=== PATIENT | female | born 1945 | race Caucasian/White ===

== ENCOUNTER 2017-11-14 08:34 | Day surgery (SDC) | payer MEDICARE, OTHER ==
[~2017-11-14 08:34] MED LIST: Lactated Ringers 1,000 ML IV SCH; Lidocaine 1%/Sod Bicarbonate in NS 8.4% 1 ML Syringe IDERM PRN; Sodium Chloride 0.9% 10 ML Syringe FLUSH PRN
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
[2017-11-14] MEDS ORDERED: Lidocaine 1% 4 ML ONE (09:07)
[2017-11-14] MEDS ORDERED: Midazolam 1 MG/ML 2 ML SDV ONE (09:07)
[2017-11-14] MEDS ORDERED: Propofol 200 MG/20 ML SDV ONE ×2 (09:07→10:05)
[2017-11-14] MEDS ORDERED: fentaNYL 100 MCG/2 ML SDV ONE (09:07)
--- NOTE | 2017-11-14 10:54 | PCM48HPAN ---
Post Anesthesia Note - EVALUATION WITHIN 48HRS OF ANESTHETIC Vital Signs in Normal Range: Yes Patient Participated in Evaluation: Yes Respiratory Function Stable: Yes Airway Patent: Yes Cardiovascular Function Stable: Yes Hydration Status Stable: Yes Pain Control Satisfactory: Yes Nausea and Vomiting Control Satisfactory: Yes Mental Status Recovered: Yes Pulse Rate: 72 SaO2: 94 Resp Rate: 16 Temperature: 97.1 F Blood Pressure: 126/79
--- NOTE | 2017-11-14 10:57 | PCM.OPNOTE ---
- General Post-Op/Procedure Note Date of Surgery/Procedure: 11/14/17 Operative Procedure(s): Screening colonoscopy with biopsy Findings: Transverse colon polyps Ascending colon polyps Descending colon polyps Internal hemorrhoids and external skin tags. Pre Op Diagnosis: colon cancer screening Post-Op Diagnosis: same Anesthesia Technique: MAC Primary Surgeon: Yenifer Perdomo Anesthesia Provider: Cyril Ledezma Fluid Replacement, Intraop: 800 Output, Urine Amount: 0 EBL in mLs: 0 Condition: Good
[2017-11-14 11:19] VITALS: BP 112/67
--- NOTE | 2017-11-14 13:14 | PCM.PRNOTE ---
- Free Text/Narrative Note: Operative Report Date of Surgery/Procedure: 11/14/17 Operative Procedure: Colonoscopy to cecum with biopsy Pre Op Diagnosis: colorectal cancer screening Post-Op Diagnosis: Colon with polyps Surgeon: Yenifer Perdomo Anesthesia Technique: MAC Anesthesia Provider: Cyril Ledezma CRNA IV Fluid Replacement, Intraop: 800 cc Output, Urine Amount: , 0 cc EBL : 0 cc Findings: Transverse colon polyps Ascending colon polyps Descending colon polyps Internal hemorrhoids and external skin tags. Specimens: 1. Transverse colon polyps 2. Ascending colon polyps 3. Descending colon polyps Indication: The patient is a 72 year-old lady who presented to the outpatient clinic requesting colorectal cancer screening. The patient has a history of normal screening colonoscopy . We discussed the procedure of a screening colonoscopy including the polypectomy and biopsy. Risks of bleeding and perforation were discussed, the patient understood and wished to proceed. Written and consent was obtained Description of the procedure: The patient was brought to the endoscopy suite and placed in the left lateral decubitus position. Appropriate monitors were applied. The patient was given MAC anesthesia. An anorectal examination was performed, revealing external skin tags. The scope was placed into the rectum and advanced to cecum with , some difficulty requiring abdominal external pressure. The patients cecum was entered, and the ileocecal valve and appendiceal orifice were identified and normal. At this point, the scope was withdrawn, paying careful attention to the mucosa. The patient had suboptimal bowel prep, allowing for visualization of 75 % of the mucosa. A few polyps were noted scattered in the transverse colon, descending and descending colon. These were biopsied with cold biopsy forceps and sent for pathology. In the rectum, the scope was retroflexed and no abnormalities were noted, except for some hemorrhoidal tissue. The scope was placed back in the lumen and the excess air was aspirated. The patient tolerated the procedure well. Complications: none apparent Condition: Good, transported to PACU in stable condition Yenifer Perdomo MD General Surgery
== END 2017-11-14 11:19 | disposition home or self-care (01) ==
LOC: JD.SDS 08:34
PROVIDERS: ATTEND Surgery
DX: Z12.11 Encounter for screening for malignant neoplasm of colon (principal); D12.0 Benign neoplasm of cecum; D12.1 Benign neoplasm of appendix; K63.5 Polyp of colon; K64.8 Other hemorrhoids; K64.4 Residual hemorrhoidal skin tags; I34.0 Nonrheumatic mitral (valve) insufficiency; I35.1 Nonrheumatic aortic (valve) insufficiency; I95.1 Orthostatic hypotension; F32.9 Major depressive disorder, single episode, unspecified; E66.9 Obesity, unspecified; Z68.38 Body mass index [BMI] 38.0-38.9, adult; Z79.02 Long term (current) use of antithrombotics/antiplatelets; Z79.82 Long term (current) use of aspirin; Z79.899 Other long term (current) drug therapy; Z88.2 Allergy status to sulfonamides; Z87.891 Personal history of nicotine dependence; Z98.890 Other specified postprocedural states
CPT/HCPCS: 45380; J2250; J2704; J3010; J7120; 00811; 88305; J2001

== ENCOUNTER 2018-12-01 14:20 | Observation (INO) | payer MEDICARE, OTHER ==
[~2018-12-01 14:20] MED LIST changes: -Lactated Ringers 1,000 ML IV SCH; -Lidocaine 1%/Sod Bicarbonate in NS 8.4% 1 ML Syringe IDERM PRN; -Sodium Chloride 0.9% 10 ML Syringe FLUSH PRN; +Sodium Chloride 0.9% 500 ML IV ONE
[2018-12-01] MEDS: Sodium Chloride 0.9% 10 ML Syringe FLUSH PRN ×2 (14:30→17:40)
--- NOTE | 2018-12-01 14:59 | CT ---
Head CT Technique: Multiple axial sections through the brain were obtained. Intravenous contrast was not utilized. Comparison: Prior head CT study of 04/18/16. Findings: Ventricles along with basal cisterns and sulci over the convexities are mildly prominent. No abnormal parenchymal densities are seen. No evidence of intracranial hemorrhage. No midline shift or mass effect is seen. Bone window settings were reviewed which show minimal soft tissue density within the inferior left mastoid sinus which is a stable finding from prior exam. Visualized paranasal sinuses are clear. No acute calvarial abnormality is seen. Slight atherosclerotic calcification seen within the vertebral vessels and carotid siphon. Impression: 1. Minimal senescent change. Stable mucosal thickening within the inferior left mastoid sinus. 2. Nothing acute is seen on noncontrast head CT exam. Diagnostic code #2
[2018-12-01] MEDS ORDERED: LORazepam 2 MG/ML SDV IVPUSH ONE (15:34)
--- NOTE | 2018-12-01 16:51 | MR ---
MRI brain Technique: T1 sagittal; T2, T2 FLAIR, T1 and diffusion axial; T1 and T2 gradient echo coronal; T2 gradient echo axial images were also obtained through the brain. Comparison: Prior head CT study performed earlier the same day (2:33 PM). Findings: Ventricles along with basal cistern and sulci over the convexities are mildly prominent. Right vertebral artery not visualized with certainty and difficult to exclude right vertebral occlusion based on this exam. MR angiogram would be needed to confirm or rule out this finding. No acute diffusion abnormalities are seen. No abnormal signal is seen within the brain parenchyma. No midline shift or mass effect is seen. Impression: 1. Slight atrophy. 2. No signal void is seen within the right vertebral artery and difficult to exclude right vertebral occlusion. MR angiogram would be needed to confirm or rule out this possibility. 3. No abnormal diffusion abnormality is seen within the brain parenchyma. No etiology is seen for the patient's symptoms. Diagnostic code #5
[2018-12-01] MEDS ORDERED: Iopamidol 755 Mg/ML 100 ML Bottle IVPUSH ONE (17:05)
[2018-12-01] MEDS ORDERED: Sodium Chloride 0.9% 100 ML IV SCH (17:15)
[2018-12-01] MEDS ORDERED: Sodium Chloride 0.9% 500 ML IV ONE (17:47)
--- NOTE | 2018-12-01 18:17 | CT ---
CT angiogram of brain Technique: Multiple axial sections through the brain were obtained. Intravenous contrast was utilized. Study performed as a CT angiogram of brain. Findings: Carotid siphon appears unremarkable. Basilar artery and posterior cerebral arteries show no focal stenosis or occlusion. Middle cerebral arteries show no focal stenosis or occlusion. No discrete aneurysm is appreciated. Impression: 1. No abnormality is appreciated on CT study of the brain performed with intravenous contrast. Diagnostic code #1
--- NOTE | 2018-12-01 18:24 | CT ---
CT angiogram of neck Technique: Multiple axial sections through the neck were obtained. Intravenous contrast was utilized. Findings: Left vertebral artery is dominant. Small very diminutive right vertebral artery is noted. There is lack of opacification within the distal right vertebral artery, uncertain if this is due to stenosis but could be due to due to lack of contrast filling due to its small size. Left vertebral artery shows no stenosis or occlusion. No dissection is seen. Common carotid arteries show no stenosis. Atherosclerotic irregularity is seen within the carotid bulb on both sides but no focal stenosis is seen. Internal carotid artery showed no stenosis or dissection. Impression: 1. Atherosclerotic irregularity within the carotid bulb. No stenosis or occlusion is seen within the common carotid or internal carotid arteries. 2. Very diminutive size of the entire right vertebral artery. 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 There is lack of visualization of the distal right vertebral artery which may represent occlusion or simply represent lack of contrast filling due to its small size. Diagnostic code #3
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
[2018-12-01] MEDS ORDERED: Docusate Sodium 100 MG Cap PO PRN (20:34)
[2018-12-01] MEDS ORDERED: Bisacodyl 5 MG Tab PO PRN (20:34)
[2018-12-01] MEDS ORDERED: Acetaminophen/HYDROcodone 325-5 MG Tab PO PRN (20:34)
[2018-12-01] MEDS ORDERED: Albuterol/Ipratropium 3.0-0.5 MG/3 ML Neb Soln NEB PRN (20:34)
[2018-12-01] MEDS ORDERED: HYDROmorphone 0.5 MG/0.5 ML Syringe IVPUSH PRN (20:34)
[2018-12-01] MEDS ORDERED: Ondansetron 4 MG/2 ML SDV IV PRN (20:34)
[2018-12-01] MEDS ORDERED: LORazepam 2 MG/ML SDV IV PRN (20:34)
[2018-12-01] MEDS ORDERED: Promethazine 6.25 MG in Sodium Chloride 0.9% 50 ML IV PRN (20:34)
[2018-12-01] MEDS ORDERED: Temazepam 7.5 MG Cap PO PRN (20:34)
[2018-12-01] MEDS: Albuterol 6.7 GM Inhaler INH PRN (21:45)
[2018-12-01] MEDS ORDERED: Albuterol 6.7 GM Inhaler INH SCH (21:59)
[2018-12-01] MEDS ORDERED: Glycopyrrolate 15.6 MCG Cap.W.Dev Kit of 6 IH SCH (22:00)
[2018-12-01] MEDS ORDERED: Midodrine 5 MG Tab PO SCH (22:00)
[2018-12-01] MEDS ORDERED: Midodrine 5 MG Tab PO PRN (22:00)
[2018-12-01] MEDS: Dorzolamide 2% Ophth Soln 10 ML Bottle EYEBOTH SCH (22:15)
[2018-12-01] MEDS: Fluticasone Propionate Nasal Spray 16 GM Bottle NAS SCH (22:16)
[2018-12-01] MEDS: Acetaminophen 325 MG Tab PO PRN (22:44)
[2018-12-01] MEDS ORDERED: Montelukast 10 MG Tab PO ONE (22:45)
[2018-12-02] MEDS ORDERED: Bacitracin/Neomycin/Polymyxin B Oint 15 GM Tube TOP PRN (04:55)
[2018-12-02] MEDS ORDERED: Albuterol 0.5% 2.5 MG/0.5 ML Neb Soln NEB SCH (06:00)
[2018-12-02] MEDS: Glycopyrrolate 15.6 MCG Cap.W.Dev Kit of 6 IH SCH ×2 (06:04→20:40)
[2018-12-02] MEDS: Albuterol 6.7 GM Inhaler INH PRN (06:05)
--- NOTE | 2018-12-02 06:27 | CR ---
Chest: Portable view of the chest was obtained. Comparison: Prior chest CT study of 10/02/17. Small metallic foreign body projected over the left chest. Lungs show no acute parenchymal change. Heart size is within normal limits for portable technique. Mild tortuosity of the thoracic aorta is seen. No discrete bony abnormality is appreciated. Impression: 1. Small metallic foreign body projected within the left chest. 2. Nothing acute seen on frontal chest x-ray. Diagnostic code #2
--- NOTE | 2018-12-02 06:42 | PCM.PN ---
- General Info Date of Service: 12/02/18 Admission Dx/Problem (Free Text): Admission Diagnosis/Problem Admission Diagnosis/Problem TIA, Transient ischemic attack Subjective Update: Follow Up Functional Status: Reports: Pain Controlled, Tolerating Diet, Ambulating, Urinating - Review of Systems General: Denies: Fever, Weakness, Fatigue, Malaise, Chills HEENT: Reports: No Symptoms Pulmonary: Denies: Shortness of Breath Cardiovascular: Denies: Chest Pain, Dyspnea on Exertion, Lightheadedness Gastrointestinal: Denies: Abdominal Pain, Decreased Appetite, Nausea, Vomiting Genitourinary: Reports: No Symptoms Musculoskeletal: Reports: No Symptoms Skin: Reports: No Symptoms Neurological: Reports: Pre-Existing Deficit, Weakness, Gait Disturbance. Denies : Confusion, Numbness, Paresthesia, Syncope, Tingling, Tremors, Trouble Speaking , Difficulty Walking, Change in Speech Psychiatric: Denies: Depression, Mood Lability, Agitation, Cravings, Hallucinations, Suicidal Ideation, Homicidal Ideation Systems Review Comment:: No overnight or acute issues. She states she is back to her baseline and no new neurological complaints. - Patient Data Vitals - Most Recent: Last Vital Signs Temp 37.1 C 12/02/18 04:43 Pulse 74 12/02/18 04:43 Resp 18 12/02/18 04:43 BP 115/70 12/02/18 04:43 Pulse Ox 96 12/02/18 04:43 Weight - Most Recent: 112.945 kg I&O - Last 24 Hours: Intake & Output 12/01/18 12/01/18 12/02/18 14:59 22:59 06:59 Intake Total 600 Output Total 300 Balance 300 Lab Results Last 24 Hours: Laboratory Results - last 24 hr 12/01/18 12/01/18 12/01/18 Range/Units 14:32 14:33 14:33 WBC 12.43 H (3.98-10.04) K/mm3 RBC 4.29 (3.98-5.22) M/mm3 Hgb 14.2 (11.2-15.7) gm/L Hct 42.3 (34.1-44.9) % MCV 98.6 H (79.4-94.8) fl MCH 33.1 H (25.6-32.2) pg MCHC 33.6 (32.2-35.5) g/dl RDW Std Deviation 47.9 H (36.4-46.3) fL Plt Count 289 (182-369) K/mm3 MPV 10.6 (9.4-12.3) fl Neut % (Auto) 70.7 (34.0-71.1) % Lymph % (Auto) 16.5 L (19.3-51.7) % [place]utter % (Auto) 11.5 (4.7-12.5) % Eos % (Auto) 0.6 L (0.7-5.8) Baso % (Auto) 0.2 (0.1-1.2) % Neut # (Auto) 8.78 H (1.56-6.13) K/mm3 Lymph # (Auto) 2.05 (1.18-3.74) K/mm3 Sutter # (Auto) 1.43 H (0.24-0.36) K/mm3 Eos # (Auto) 0.08 (0.04-0.36) K/mm3 Baso # (Auto) 0.03 (0.01-0.08) K/mm3 Manual Slide Review Normal smear PT 9.8 (9.7-12.0) SECONDS INR < 0.93 APTT 25 (22-31) SECONDS Sodium (136-145) mEq/L Potassium (3.5-5.1) mEq/L Chloride (98-107) mEq/L Carbon Dioxide (21-32) mEq/L Anion Gap (5-15) BUN (7-18) mg/dL Creatinine (0.55-1.02) mg/dL Est Cr Clr Drug Dosing mL/min Estimated GFR (MDRD) (>60) mL/min BUN/Creatinine Ratio (14-18) Glucose (83-115) mg/dL POC Glucose 81 L (83-110) mg/dL Calcium (8.5-10.1) mg/dL Magnesium (1.8-2.4) mg/dl Total Bilirubin (0.2-1.0) mg/dL AST (15-37) U/L ALT (14-59) U/L Alkaline Phosphatase (46-116) U/L Troponin I (0.00-0.056) ng/mL Total Protein (6.4-8.2) g/dl Albumin (3.4-5.0) g/dl Globulin gm/dL Albumin/Globulin Ratio (1-2) Triglycerides (<150) mg/dL Cholesterol (<200) mg/dL LDL Cholesterol Direct (<100) mg/dL HDL Cholesterol (40-59) mg/dL 12/01/18 12/02/18 12/02/18 Range/Units 14:33 04:18 04:18 WBC 10.06 H (3.98-10.04) K/mm3 RBC 3.86 L (3.98-5.22) M/mm3 Hgb 12.5 D (11.2-15.7) gm/L Hct 38.1 (34.1-44.9) % MCV 98.7 H (79.4-94.8) fl MCH 32.4 H (25.6-32.2) pg MCHC 32.8 (32.2-35.5) g/dl RDW Std Deviation 47.4 H (36.4-46.3) fL Plt Count 251 (182-369) K/mm3 MPV 11.0 (9.4-12.3) fl Neut % (Auto) 67.9 (34.0-71.1) % Lymph % (Auto) 21.6 (19.3-51.7) % Sutter % (Auto) 9.0 (4.7-12.5) % Eos % (Auto) 0.8 (0.7-5.8) Baso % (Auto) 0.2 (0.1-1.2) % Neut # (Auto) 6.83 H (1.56-6.13) K/mm3 Lymph # (Auto) 2.17 (1.18-3.74) K/mm3 Sutter # (Auto) 0.91 H (0.24-0.36) K/mm3 Eos # (Auto) 0.08 (0.04-0.36) K/mm3 Baso # (Auto) 0.02 (0.01-0.08) K/mm3 Manual Slide Review PT (9.7-12.0) SECONDS INR APTT (22-31) SECONDS Sodium 137 137 (136-145) mEq/L Potassium 4.9 4.3 (3.5-5.1) mEq/L Chloride 102 105 (98-107) mEq/L Carbon Dioxide 26 23 (21-32) mEq/L Anion Gap 13.9 13.3 (5-15) BUN 23 H 19 H (7-18) mg/dL Creatinine 1.0 0.8 (0.55-1.02) mg/dL Est Cr Clr Drug Dosing 45.08 56.36 mL/min Estimated GFR (MDRD) 54 > 60 (>60) mL/min BUN/Creatinine Ratio 23.0 H 23.8 H (14-18) Glucose 87 106 (83-115) mg/dL POC Glucose (83-110) mg/dL Calcium 9.2 8.3 L (8.5-10.1) mg/dL Magnesium 2.3 (1.8-2.4) mg/dl Total Bilirubin 0.4 (0.2-1.0) mg/dL AST 17 (15-37) U/L ALT 32 (14-59) U/L Alkaline Phosphatase 75 (46-116) U/L Troponin I < 0.017 (0.00-0.056) ng/mL Total Protein 7.5 (6.4-8.2) g/dl Albumin 3.3 L (3.4-5.0) g/dl Globulin 4.2 gm/dL Albumin/Globulin Ratio 0.8 L (1-2) Triglycerides 52 (<150) mg/dL Cholesterol 176 (<200) mg/dL LDL Cholesterol Direct 105 H* (<100) mg/dL HDL Cholesterol 61.0 H (40-59) mg/dL Med Orders - Current: Current Medications Acetaminophen (Tylenol) 650 mg PO Q4H PRN PRN Reason: Pain (Mild 1-3)/fever Last Admin: 12/01/18 22:44 Dose: 650 mg Hydrocodone Bitart/Acetaminophen ([place] 325-5 Mg) 1 tab PO Q4H PRN PRN Reason: Pain (moderate 4-6) Albuterol (Proventil Hfa) 1 - 2 gm INH Q4H PRN PRN Reason: shortness of breath Last Admin: 12/02/18 06:05 Dose: 2 puff Albuterol (Proventil) 2.5 mg NEB BIDRT DUY Albuterol/Ipratropium (Duoneb 3.0-0.5 Mg/3 Ml) 3 ml NEB Q4H PRN PRN Reason: Shortness Of Breath/wheezing Aspirin (Halfprin) 81 mg PO DAILY [facility] Bisacodyl (Dulcolax) 5 mg PO DAILY PRN PRN Reason: Constipation Calcium Carbonate (Calcium Carbonate/Vitamin D 600 Mg-200 Unit) 1 tab PO BID [facility] Clopidogrel Bisulfate (Plavix) 75 mg PO DAILY [facility] Docusate Sodium (Colace) 100 mg PO BID PRN PRN Reason: Constipation Dorzolamide HCl (Trusopt 2% Ophth Soln) 0 ml EYEBOTH BID [facility] Last Admin: 12/01/18 22:15 Dose: 1 drop Enoxaparin Sodium (Lovenox) 40 mg SUBCUT DAILY [facility] Fluoxetine HCl (Prozac) 60 mg PO DAILY [facility] Fluticasone Propionate (Flonase) 0 gm ELVIRA BEDTIME [facility] Last Admin: 12/01/18 22:16 Dose: 2 spray Glycopyrrolate (Seebri Neohaler) 0 mcg IH BIDRT [facility] Last Admin: 12/02/18 06:04 Dose: 2 cap Hydromorphone HCl (Dilaudid) 0.25 mg IVPUSH Q2H PRN PRN Reason: Pain (severe 7-10) Promethazine HCl 6.25 mg/ (Sodium Chloride) 50.25 mls @ 100 mls/hr IV Q6H PRN PRN Reason: Nausea/Vomiting Lorazepam (Ativan) 0.5 mg IV Q6H PRN PRN Reason: Anxiety Midodrine (Midodrine) 5 mg PO QID PRN PRN Reason: Hypotension Montelukast Sodium (Singulair) 10 mg PO BEDTIME [facility] Multivitamins (Thera) 1 each PO DAILY [facility] Neomycin/Polymyxin/Bacitracin (Neosporin Oint) 1 gm TOP TID PRN PRN Reason: Dryness Non-Formulary Medication (Folic Acid [Folic Acid]) 0.8 mg PO DAILY [facility] Non-Formulary Medication (Timolol [Betimol]) 1 drop EYEBOTH DAILY [facility] Ondansetron HCl (Zofran) 4 mg IV Q6H PRN PRN Reason: Nausea/Vomiting Senna/Docusate Sodium (Senna Plus) 1 tab PO BID PRN PRN Reason: Constipation Simvastatin (Zocor) 20 mg PO DAILY [facility] Sodium Chloride (Saline Flush) 10 ml FLUSH ASDIRECTED PRN PRN Reason: Keep Vein Open Last Admin: 12/01/18 17:40 Dose: 10 ml Temazepam (Restoril) 7.5 mg PO BEDTIME PRN PRN Reason: Sleep Vitamin B Complex/Vitamin C (Super B With Vitamin C) 1 cap PO DAILY [facility] Discontinued Medications Albuterol (Proventil Hfa) 0 gm INH BIDRT [facility] Last Admin: 12/01/18 22:18 Dose: Not Given Glycopyrrolate (Seebri Neohaler) 0 mcg IH BID [facility]Y Last Admin: 12/01/18 21:45 Dose: 1 cap Sodium Chloride (Normal Saline) 100 mls @ 80 mls/hr IV ASDIRECTED DUY Last Admin: 12/01/18 17:40 Dose: 80 mls/hr Sodium Chloride (Normal Saline) 500 mls @ 1,000 mls/hr IV .BOLUS ONE Stop: 12/01/18 18:16 Last Admin: 12/01/18 18:17 Dose: 1,000 mls/hr Sodium Chloride (Normal Saline) 500 mls @ 999 mls/hr IV BOLUS ONE Stop: 12/01/18 07:30 Last Admin: 12/01/18 22:02 Dose: Not Given Iopamidol (Isovue-370 (76%)) 100 ml IVPUSH ONETIME ONE Stop: 12/01/18 17:06 Last Admin: 12/01/18 17:40 Dose: 100 ml Lorazepam (Ativan) 0.5 mg IVPUSH ONETIME ONE Stop: 12/01/18 15:35 Last Admin: 12/01/18 15:48 Dose: 0.5 mg Midodrine (Midodrine) 5 mg PO QID [facility] Montelukast Sodium (Singulair) 10 mg PO ONETIME ONE Stop: 12/01/18 22:46 Last Admin: 12/01/18 22:44 Dose: 10 mg - Exam General: Alert, Oriented, Cooperative, No Acute Distress, Other (Morbidly Obese) HEENT: Pupils Equal, Pupils Reactive, EOMI, Mucous Membr. Moist/[place] Neck: Supple Lungs: Clear to Auscultation, Normal Respiratory Effort Cardiovascular: Regular Rate, Regular Rhythm GI/Abdominal Exam: Normal Bowel Sounds, Soft, Non-Tender, No Organomegaly, No Distention, No Abnormal Bruit (Female) Exam: Deferred Back Exam: Normal Inspection, Decreased Range of Motion Extremities: Normal Inspection, Normal Range of Motion, Non-Tender, No Pedal Edema, Normal Capillary Refill Peripheral Pulses: 2+: Dorsalis Pedis (L), Dorsalis Pedis (R) Skin: Warm, Dry, Intact Wound/Incisions: Healing Well Neurological: No New Focal Deficit. No: Normal Gait Psy/Mental Status: Alert, Normal Affect, Normal Mood - Problem List Review Problem List Initiated/Reviewed/Updated: Yes - My Orders Last 24 Hours: My Active Orders 12/01/18 20:29 Albuterol [Proventil HFA] 1 - 2 gm INH Q4H PRN 12/01/18 20:34 Height and Weight [RC] 04 Up With Assistance [RC] ASDIRECTED Consult to Case Management/Dinkey Engine Firer [CONS] Routine Consult to Ge[employer] Field Assistant [CONS] Routine Consult to Spiritual Care [CONS] Routine OT Evaluation and Treatment [CONS] Routine PT Evaluation and Treatment [CONS] Routine BIBLICAL STUDIES PROFESSOR Evaluation and Treatment [CONS] Routine Acetaminophen [Tylenol] 650 mg PO Q4H PRN Acetaminophen/HYDROcodone [[place] 325-5 MG] 1 tab PO Q4H PRN Albuterol/Ipratropium [DuoNeb 3.0-0.5 MG/3 ML] 3 ml NEB Q4H PRN Bisacodyl [Dulcolax] 5 mg PO DAILY PRN Docusate Sodium [Colace] 100 mg PO BID PRN Docusate Sodium/Sennosides [Senna Plus] 1 tab PO BID PRN HYDROmorphone [Dilaudid] 0.25 mg IVPUSH Q2H PRN LORazepam [Ativan] 0.5 mg IV Q6H PRN Ondansetron [Zofran] 4 mg IV Q6H PRN Promethazine [Phenergan] 6.25 mg Sodium Chloride 0.9% [Normal Saline] 50 ml IV Q6H Temazepam [Restoril] 7.5 mg PO BEDTIME PRN Resuscitation Status Routine 12/01/18 20:35 Intake and Output [RC] 04,16 Oxygen Therapy [RC] PRN VTE/DVT Education [RC] DAILY Vital Signs [RC] 03,09,15,21 12/01/18 20:36 RT Aerosol Therapy [RC] ASDIRECTED 12/01/18 20:53 Echo Comp wo Cont [US] Routine 12/01/18 20:54 Brain w Cont [MR] Routine 12/01/18 21:00 Dorzolamide [Trusopt 2% Ophth Soln] 0 ml EYEBOTH BID 12/01/18 21:04 Neuro Check [RC] BID 12/01/18 22:00 Fluticasone Propionate [Flonase] 0 gm ELVIRA BEDTIME Midodrine 5 mg PO QID PRN 12/01/18 Dinner Heart Healthy Diet [DIET] 12/02/18 04:55 Bacitracin/Neomycin/Polymyxin [Neosporin Oint] 1 gm TOP TID PRN 12/02/18 06:00 Albuterol [Proventil] 2.5 mg NEB BIDRT Glycopyrrolate [Seebri Neohaler] See Dose Instructions IH BIDRT 12/02/18 09:00 Aspirin [Halfprin] 81 mg PO DAILY Calcium Carbonate/Vitamin D3 [Calcium Carbonate/Vitamin D 600 MG-200 Unit] 1 tab PO BID Clopidogrel [Plavix] 75 mg PO DAILY Enoxaparin [Lovenox] 40 mg SUBCUT DAILY FLUoxetine [PROzac] 60 mg PO DAILY Folic Acid [Folic Acid] 0.8 mg PO DAILY Multivitamins,Therapeutic [Thera] 1 each PO DAILY Simvastatin [Zocor] 20 mg PO DAILY Timolol [Betimol] 1 drop EYEBOTH DAILY Vitamin B Complex with C [Super B With Vitamin C] 1 cap PO DAILY 12/02/18 21:00 Montelukast [Singulair] 10 mg PO BEDTIME 12/03/18 05:11 BASIC METABOLIC PANEL,BMP [CHEM] AM CBC WITH AUTO DIFF [HEME] AM MAGNESIUM [CHEM] AM 12/04/18 05:11 BASIC METABOLIC PANEL,BMP [CHEM] AM CBC WITH AUTO DIFF [HEME] AM MAGNESIUM [CHEM] AM 12/05/18 05:11 BASIC METABOLIC PANEL,BMP [CHEM] AM CBC WITH AUTO DIFF [HEME] AM MAGNESIUM [CHEM] AM 12/06/18 05:11 BASIC METABOLIC PANEL,BMP [CHEM] AM CBC WITH AUTO DIFF [HEME] AM MAGNESIUM [CHEM] AM - Plan Plan:: Assessment: Acute: TIA - Risk Factors: HLD, Obesity and Valvular Insufficiency - Left facial and arm numbness intermittent since Friday - NIH score of 1 (baseline lower leg weakness/paresthesia) this AM; She reports no new neurological complaints - She is on Plavix, ASA and Pravachol for routine home medications - Case discussed with neurologist in [place] by ED Provider; recommendations were to admit and observe her - Head CT scan report read as no abnormality appreciated; Brain MRI report read as slight atrophy. No sign void is seen within the right vertebral artery and difficult to exclude right vertebral occlusion. MRA would be needed to confirm or r/o this possibility. No abnormal diffusion abnormality seen within the brain parenchyma. - Head CTA report read as no abnormality is appreciated; Neck CTA report read as atherosclerosis irregularity within the carotid bulb. No stenosis or occlusion is seen within the CCA or ICA. Very small size of the entire right vertebral artery. 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 Plan: She is clinically stable Routine AM Labs She is already on ASA/Plavix plus Statin RT/PT/OT to assess and treat Fall precautions SW/CM for d/c planning Code status: full Additional orders as above Possible d/c in 1-2 days Updated patient regarding morning labs, tests result and treatment plan
[2018-12-02] MEDS: Multivitamins,Therapeutic Tab PO SCH (08:16)
[2018-12-02] MEDS: Aspirin 81 MG Tab.EC PO SCH (08:17)
[2018-12-02] MEDS: Folic Acid 1 MG Tab PO SCH (08:17)
[2018-12-02] MEDS: Simvastatin 20 MG Tab PO SCH (08:17)
[2018-12-02] MEDS: Clopidogrel 75 MG Tab PO SCH (08:17)
[2018-12-02] MEDS: Vitamin B Complex With Vitamin C Cap PO SCH (08:18)
[2018-12-02] MEDS: FLUoxetine 20 MG Cap PO SCH (08:18)
[2018-12-02] MEDS: Calcium Carbonate/Vitamin D3 600 MG-200 Units Tab PO SCH ×2 (08:18→21:06)
[2018-12-02] MEDS: Dorzolamide 2% Ophth Soln 10 ML Bottle EYEBOTH SCH ×2 (08:19→21:07)
[2018-12-02] MEDS ORDERED: TIMOLOL EYEBOTH SCH (09:00)
[2018-12-02] MEDS: Enoxaparin 40 MG/0.4 ML Syringe SUBCUT SCH (09:00)
--- NOTE | 2018-12-02 09:44 | MR ---
MR angiogram of brain Technique: [id number] MR angiogram study was obtained centered to the [place] of [place]. Multiple MIP images were obtained in multiple projections. Findings: Basilar artery is patent. Carotid siphon appears within normal limits. Middle and anterior cerebral arteries show no focal stenosis or occlusion. Posterior cerebral arteries are patent. There appears to be a small aneurysm off the M1 segment of the left MCA measuring 2.1 mm. Equivocal 2nd aneurysm is seen more distally within the MCA artery within an anterior branch measuring 1.3 mm. No additional aneurysm is appreciated. Impression: 1. 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 2. MR angiogram of brain is otherwise unremarkable. Diagnostic code #5 Stained Glass Glazier Helper called report to Dr. Ly Luna at 09:36 on 12/02/2018
[2018-12-02] MEDS: Acetaminophen 325 MG Tab PO PRN (15:08)
[2018-12-02] MEDS: Albuterol 6.7 GM Inhaler INH SCH (20:38)
[2018-12-02] MEDS ORDERED: Montelukast 10 MG Tab PO SCH (21:00)
[2018-12-02] MEDS: Fluticasone Propionate Nasal Spray 16 GM Bottle NAS SCH (21:06)
--- NOTE | 2018-12-02 21:13 | PCM.DCSUM1 ---
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 She denies any other neurological complaints. She is non diabetic and denies any previous hx/o TIA/CVA in the past. She did not seek medical care and waited until she got a hold of Dr. Plunkett was told to come to ED for evaluation. Her NIH score in ED was 5 and her repeat assessment on the floor she scored 0. Her initial work reveals a CBC remarkable for WBC of 12.43. MCV of 98.6, MCH of 33.1, RDW of 47.9, Lymphocytes of 16.5%, and Eosinophils of 0.6%. Her chemistry is significant for BUN of 23, BS of 87, and Albumin of 3.3. Her Head CT scan report read as no abnormality appreciated; Brain MRI report read as slight atrophy. No sign void is seen within the right vertebral artery and difficult to exclude right vertebral occlusion. MRA would be needed to confirm or r/o this possibility. No abnormal diffusion abnormality seen within the brain parenchyma. Head CTA report read as no abnormality is appreciated; and Neck CTA report read as atherosclerosis irregularity within the carotid bulb. No stenosis or occlusion is seen within the CCA or ICA. Very small size of the entire right vertebral artery. 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 Patient is primarily coming in for further observation of TIA. Diagnosis: Stroke: Yes Modified Kristal Scale: No Symptoms at All Modified [place] Scale Score: 0 - Discharge Data Discharge Date: 12/03/18 Discharge Disposition: Home, Self-Care 01 Condition: Good - Discharge Diagnosis/Problem(s) (1) TIA (transient ischemic attack) SNOMED Code(s): 872810409 ICD Code: G45.9 - TRANSIENT CEREBRAL ISCHEMIC ATTACK, UNSPECIFIED Status: Ruled-out (2) Carotid atherosclerosis SNOMED Code(s): 595786900 ICD Code: I65.29 - OCCLUSION AND STENOSIS OF UNSPECIFIED CAROTID ARTERY Status: Acute Qualifiers: Laterality: bilateral Qualified Code(s): I65.23 - Occlusion and stenosis of bilateral carotid arteries (3) Morbid obesity with BMI of 40.0-44.9, adult SNOMED Code(s): 931141215, 63664724918238 ICD Code: E66.01 - MORBID (SEVERE) OBESITY DUE TO EXCESS CALORIES; Z68.41 - BODY MASS INDEX (BMI) 40.0-44.9, ADULT Status: Chronic (4) Aneurysm SNOMED Code(s): 722382149 ICD Code: I72.9 - ANEURYSM OF UNSPECIFIED SITE Status: Acute - Patient Summary/Data Operative Procedure(s) Performed: None Complications: None Consults: Consultations 12/01/18 20:34 Consult to Case Management/Head Of Loss Prevention [CONS] Routine Consult to Occupational Safety And Health Manager [CONS] Routine Consult to Spiritual Care [CONS] Routine OT Evaluation and Treatment [CONS] Routine PT Evaluation and Treatment [CONS] Routine CAPACITY ANALYST Evaluation and Treatment [CONS] Routine Labs Pending at D/C: None Recommended Follow-up Testing/Procedures: None Planned Operative Procedure(s) after DC: None Hospital Course: Patient was primarily admitted for TIA. She carried no hx/o CVA/Stroke in the past. Her work up revealed no obvious cause of her TIA but resolved when she got to the observation floor. However her Brain MRA revealed an abnormal finding suspicious of 2 small aneurysms within the Left MCA and Bilateral Carotid Atherosclerosis on Neck CTA. Patient received TIA/Stroke treatment to included CAPACITY ANALYST, PT, and OT. She was put on AHA and continued on her home regimen of ASA/Plavix and BB. Her Telemetry showed no significant abnormal rhythm and her 2D echo was normal with good ejection fraction of 60-65% without regional wall motion abnormality. Her hospital course was uncomplicated. Once medically stable, she was then released to Home. She was advised to follow discharge instructions and to follow up with her family doctor after discharge. She was further advised to come back or seek immediate care should her symptoms persist or get worse. The patient expressed understanding and in agreement with the plans as discussed above. All questions and concerns answered. - Patient Instructions Diet: Heart Healthy Diet, Usual Diet as Tolerated, Weight Loss Diet Activity: As Tolerated Driving: Do Not Drive Showering/Bathing: May Shower Notify Provider of: Fever, Increased Pain, Swelling and Redness, Nausea and/or Vomiting Other/Special Instructions: - Please take all new medications as directed. - Resume routine home medications and activity as tolerated as per PT/OT. - Recommend Lifestyl Modifications: Eat Properly, Exercise Regularly and Lose Weight. - Call or follow up with your doctor for any concerns or issues after discharge. - Follow up with your doctor in 1 week. - Come back or seek immediate care should your symptoms persist or get worse - Discharge Plan *PRESCRIPTION DRUG MONITORING PROGRAM REVIEWED*: Not Applicable *COPY OF PRESCRIPTION DRUG MONITORING REPORT IN PATIENT JOSE D: Not Applicable Home Medications: Home Meds FLUoxetine [PROzac] 60 mg PO DAILY 10/03/15 [History] Pravastatin [Pravachol] 40 mg PO DAILY 10/03/15 [History] Clopidogrel [Plavix] 75 mg PO DAILY 04/18/16 [History] Midodrine 5 mg PO QID PRN 04/18/16 [History] Albuterol Sulfate [Proair Hfa] 1 - 2 puff INH Q4H PRN 11/13/17 [History] Aspirin [Halfprin] 81 mg PO DAILY 11/13/17 [History] Ca Carbonate/Vitamin D3/Vit K [Calcium + D Soft Chewable Tab] 1 tab PO BID 11/13 [History] Dorzolamide [Trusopt 2% Ophth Soln] 1 drop EYEBOTH BID 11/13/17 [History] Folic Acid 0.8 mg PO DAILY 11/13/17 [History] Multivitamin [Poly-Vitamin] 1 tab PO DAILY 11/13/17 [History] Timolol [Betimol] 1 drop EYEBOTH DAILY 11/13/17 [History] Vitamin B Complex [B Complex] 1 tab PO DAILY 11/13/17 [History] Albuterol [Proventil HFA] 2 puff INH BID 12/01/18 [History] Fluticasone Propionate [Flonase] 16 gm NASBOTH DAILY 12/01/18 [History] Montelukast Sodium [Singulair] 10 mg PO BEDTIME 12/01/18 [History] Tiotropium [Spiriva HandiHaler] 18 mcg INH DAILY 12/01/18 [History] Oxygen Therapy Mode: Room Air Patient Handouts: Stroke Prevention, Cerebral Aneurysm, Atherosclerosis, Transient Ischemic Attack Referrals: Mali Forte NP [Primary Care Provider] - 12/10/18 1:45 pm - Discharge Summary/Plan Comment DC Time >30 min.: No Discharge Summary/Plan Comment: Discharge to Home - General Info Date of Service: 12/03/18 Admission Dx/Problem (Free Text: Admission Diagnosis/Problem Admission Diagnosis/Problem TIA, Transient ischemic attack Subjective Update: Follow Up Functional Status: Reports: Pain Controlled, Tolerating Diet, Ambulating, Urinating. Denies: New Symptoms - Review of Systems General: Reports: Weakness (chronic: left leg ). Denies: Fever, Fatigue, Malaise, Chills HEENT: Reports: No Symptoms Pulmonary: Denies: Shortness of Breath Cardiovascular: Denies: Chest Pain, Dyspnea on Exertion, Lightheadedness Gastrointestinal: Denies: Abdominal Pain, Nausea, Vomiting Genitourinary: Reports: No Symptoms Musculoskeletal: Reports: No Symptoms Skin: Denies: Cyanosis, Mottled, Pallor, Diaphoresis, Bruising, Other Neurological: Reports: Paresthesia (left lower leg), Pre-Existing Deficit, Weakness, Gait Disturbance. Denies: Confusion, Dizziness, Headache, Numbness, Seizure, Syncope, Tingling, Tremors, Trouble Speaking, Difficulty Walking, Change in Speech Psychiatric: Denies: Confusion, Depression, Mood Lability, Anxiety, Agitation, Hallucinations, Suicidal Ideation, Homicidal Ideation Systems Review Comment: No overnight or acute issues. She is at baseline and no new neurological complaints. - Patient Data Vitals - Most Recent: Last Vital Signs Temp 36.7 C 12/02/18 15:25 Pulse 74 12/02/18 15:25 Resp 16 12/02/18 15:25 BP 103/70 12/02/18 15:25 Pulse Ox 94 L 12/02/18 20:40 Weight - Most Recent: 112.037 kg I&O - Last 24 hours: Intake & Output 12/02/18 12/02/18 12/02/18 06:59 14:59 22:59 Intake Total 181 261 6700 Output Total 300 750 Balance 300 340 690 Lab Results - Last 24 hrs: Laboratory Results - last 24 hr 12/02/18 12/02/18 Range/Units 04:18 04:18 WBC 10.06 H (3.98-10.04) K/mm3 RBC 3.86 L (3.98-5.22) M/mm3 Hgb 12.5 D (11.2-15.7) gm/L Hct 38.1 (34.1-44.9) % MCV 98.7 H (79.4-94.8) fl MCH 32.4 H (25.6-32.2) pg MCHC 32.8 (32.2-35.5) g/dl RDW Std Deviation 47.4 H (36.4-46.3) fL Plt Count 251 (182-369) K/mm3 MPV 11.0 (9.4-12.3) fl Neut % (Auto) 67.9 (34.0-71.1) % Lymph % (Auto) 21.6 (19.3-51.7) % [place] % (Auto) 9.0 (4.7-12.5) % Eos % (Auto) 0.8 (0.7-5.8) Baso % (Auto) 0.2 (0.1-1.2) % Neut # (Auto) 6.83 H (1.56-6.13) K/mm3 Lymph # (Auto) 2.17 (1.18-3.74) K/mm3 [place] # (Auto) 0.91 H (0.24-0.36) K/mm3 Eos # (Auto) 0.08 (0.04-0.36) K/mm3 Baso # (Auto) 0.02 (0.01-0.08) K/mm3 Sodium 137 (136-145) mEq/L Potassium 4.3 (3.5-5.1) mEq/L Chloride 105 (98-107) mEq/L Carbon Dioxide 23 (21-32) mEq/L Anion Gap 13.3 (5-15) BUN 19 H (7-18) mg/dL Creatinine 0.8 (0.55-1.02) mg/dL Est Cr Clr Drug Dosing 56.36 mL/min Estimated GFR (MDRD) > 60 (>60) mL/min BUN/Creatinine Ratio 23.8 H (14-18) Glucose 106 (83-115) mg/dL Calcium 8.3 L (8.5-10.1) mg/dL Magnesium 2.3 (1.8-2.4) mg/dl Triglycerides 52 (<150) mg/dL Cholesterol 176 (<200) mg/dL LDL Cholesterol Direct 105 H* (<100) mg/dL HDL Cholesterol 61.0 H (40-59) mg/dL Med Orders - Current: Current Medications Acetaminophen (Tylenol) 650 mg PO Q4H PRN PRN Reason: Pain (Mild 1-3)/fever Last Admin: 12/02/18 15:08 Dose: 650 mg Hydrocodone Bitart/Acetaminophen ([place] 325-5 Mg) 1 tab PO Q4H PRN PRN Reason: Pain (moderate 4-6) Albuterol (Proventil Hfa) 1 - 2 gm INH Q4H PRN PRN Reason: shortness of breath Last Admin: 12/02/18 06:05 Dose: 2 puff Albuterol (Proventil Hfa) 0 gm INH BIDRT [facility] Last Admin: 12/02/18 20:38 Dose: 2 each Albuterol/Ipratropium (Duoneb 3.0-0.5 Mg/3 Ml) 3 ml NEB Q4H PRN PRN Reason: Shortness Of Breath/wheezing Aspirin (Halfprin) 81 mg PO DAILY [facility] Last Admin: 12/02/18 08:17 Dose: 81 mg Bisacodyl (Dulcolax) 5 mg PO DAILY PRN PRN Reason: Constipation Calcium Carbonate (Calcium Carbonate/Vitamin D 600 Mg-200 Unit) 1 tab PO BID [facility] Last Admin: 12/02/18 21:06 Dose: 1 tab Clopidogrel Bisulfate (Plavix) 75 mg PO DAILY [facility] Last Admin: 12/02/18 08:17 Dose: 75 mg Docusate Sodium (Colace) 100 mg PO BID PRN PRN Reason: Constipation Dorzolamide HCl (Trusopt 2% Ophth Soln) 0 ml EYEBOTH BID [facility] Last Admin: 12/02/18 21:07 Dose: 1 drop Enoxaparin Sodium (Lovenox) 40 mg SUBCUT DAILY [facility] Last Admin: 12/02/18 09:00 Dose: 40 mg Fluoxetine HCl (Prozac) 60 mg PO DAILY [facility] Last Admin: 12/02/18 08:18 Dose: 60 mg Fluticasone Propionate (Flonase) 0 gm ELVIRA BEDTIME [facility] Last Admin: 12/02/18 21:06 Dose: 2 spray Folic Acid (Folic Acid) 1 mg PO DAILY [facility] Last Admin: 12/02/18 08:17 Dose: 1 mg Glycopyrrolate (Seebri Neohaler) 0 mcg IH BIDRT [facility] Last Admin: 12/02/18 20:40 Dose: 1 cap Hydromorphone HCl (Dilaudid) 0.25 mg IVPUSH Q2H PRN PRN Reason: Pain (severe 7-10) Promethazine HCl 6.25 mg/ (Sodium Chloride) 50.25 mls @ 100 mls/hr IV Q6H PRN PRN Reason: Nausea/Vomiting Lorazepam (Ativan) 0.5 mg IV Q6H PRN PRN Reason: Anxiety Last Admin: 12/02/18 08:27 Dose: 0.5 mg Midodrine (Midodrine) 5 mg PO QID PRN PRN Reason: Hypotension Montelukast Sodium (Singulair) 10 mg PO BEDTIME [facility] Last Admin: 12/02/18 21:07 Dose: 10 mg Multivitamins (Thera) 1 each PO DAILY [facility] Last Admin: 12/02/18 08:16 Dose: 1 each Neomycin/Polymyxin/Bacitracin (Neosporin Oint) 1 gm TOP TID PRN PRN Reason: Dryness Non-Formulary Medication (Timolol [Betimol]) 1 drop EYEBOTH DAILY [facility] Ondansetron HCl (Zofran) 4 mg IV Q6H PRN PRN Reason: Nausea/Vomiting Senna/Docusate Sodium (Senna Plus) 1 tab PO BID PRN PRN Reason: Constipation Simvastatin (Zocor) 20 mg PO DAILY [facility] Last Admin: 12/02/18 08:17 Dose: 20 mg Sodium Chloride (Saline Flush) 10 ml FLUSH ASDIRECTED PRN PRN Reason: Keep Vein Open Last Admin: 12/01/18 17:40 Dose: 10 ml Temazepam (Restoril) 7.5 mg PO BEDTIME PRN PRN Reason: Sleep Vitamin B Complex/Vitamin C (Super B With Vitamin C) 1 cap PO DAILY [facility] Last Admin: 12/02/18 08:18 Dose: 1 cap Discontinued Medications Albuterol (Proventil Hfa) 0 gm INH BIDRT [facility] Last Admin: 12/01/18 22:18 Dose: Not Given Albuterol (Proventil) 2.5 mg NEB BIDRT [facility] Last Admin: 12/02/18 07:03 Dose: Not Given Glycopyrrolate (Seebri Neohaler) 0 mcg IH BID [facility] Last Admin: 12/01/18 21:45 Dose: 1 cap Sodium Chloride (Normal Saline) 100 mls @ 80 mls/hr IV ASDIRECTED [facility] Last Admin: 12/01/18 17:40 Dose: 80 mls/hr Sodium Chloride (Normal Saline) 500 mls @ 1,000 mls/hr IV .BOLUS ONE Stop: 12/01/18 18:16 Last Admin: 12/01/18 18:17 Dose: 1,000 mls/hr Sodium Chloride (Normal Saline) 500 mls @ 999 mls/hr IV BOLUS ONE Stop: 12/01/18 07:30 Last Admin: 12/01/18 22:02 Dose: Not Given Iopamidol (Isovue-370 (76%)) 100 ml IVPUSH ONETIME ONE Stop: 12/01/18 17:06 Last Admin: 12/01/18 17:40 Dose: 100 ml Lorazepam (Ativan) 0.5 mg IVPUSH ONETIME ONE Stop: 12/01/18 15:35 Last Admin: 12/01/18 15:48 Dose: 0.5 mg Midodrine (Midodrine) 5 mg PO QID [facility] Montelukast Sodium (Singulair) 10 mg PO ONETIME ONE Stop: 12/01/18 22:46 Last Admin: 12/01/18 22:44 Dose: 10 mg - Exam General: Reports: Alert, Oriented, Cooperative, No Acute Distress, Other ( Morbidly Obese) HEENT: Reports: Pupils Equal, Pupils Reactive, EOMI, Mucous Membr. Moist/[place] Neck: Reports: Supple Lungs: Reports: Normal Respiratory Effort, Decreased Breath Sounds Cardiovascular: Reports: Regular Rate, Regular Rhythm GI/Abdominal Exam: Normal Bowel Sounds, Soft, Non-Tender, No Organomegaly, No Distention, No Abnormal Bruit, No Mass (Female) Exam: Deferred Rectal (Female) Exam: Deferred Back Exam: Reports: Normal Inspection, Decreased Range of Motion Extremities: Normal Inspection, Normal Range of Motion, Non-Tender, No Pedal Edema, Normal Capillary Refill Skin: Reports: Warm, Dry, Intact Neurological: Reports: No New Focal Deficit, Normal Gait Psy/Mental Status: Reports: Alert, Normal Affect, Normal Mood
[2018-12-03] MEDS: Glycopyrrolate 15.6 MCG Cap.W.Dev Kit of 6 IH SCH (06:01)
[2018-12-03] MEDS: Albuterol 6.7 GM Inhaler INH SCH (06:01)
[2018-12-03 08:26] VITALS: BP 109/79
[2018-12-03] MEDS: Vitamin B Complex With Vitamin C Cap PO SCH (08:52)
[2018-12-03] MEDS: Calcium Carbonate/Vitamin D3 600 MG-200 Units Tab PO SCH (08:53)
[2018-12-03] MEDS: Aspirin 81 MG Tab.EC PO SCH (08:53)
[2018-12-03] MEDS: Multivitamins,Therapeutic Tab PO SCH (08:53)
[2018-12-03] MEDS: Simvastatin 20 MG Tab PO SCH (08:54)
[2018-12-03] MEDS: Clopidogrel 75 MG Tab PO SCH (08:54)
[2018-12-03] MEDS: Folic Acid 1 MG Tab PO SCH (08:54)
[2018-12-03] MEDS: FLUoxetine 20 MG Cap PO SCH (08:54)
[2018-12-03] MEDS: Dorzolamide 2% Ophth Soln 10 ML Bottle EYEBOTH SCH (08:55)
[2018-12-03] MEDS: Enoxaparin 40 MG/0.4 ML Syringe SUBCUT SCH (08:56)
== END 2018-12-03 11:54 | disposition home or self-care (01) ==
LOC: JD.ED 14:20 → JD.MS 19:50
PROVIDERS: ADMIT Internal Medicine; ATTEND Internal Medicine
DX: G45.9 Transient cerebral ischemic attack, unspecified (principal); I10 Essential (primary) hypertension; I67.1 Cerebral aneurysm, nonruptured; I35.1 Nonrheumatic aortic (valve) insufficiency; I72.9 Aneurysm of unspecified site; E78.00 Pure hypercholesterolemia, unspecified; E66.01 Morbid (severe) obesity due to excess calories; J45.909 Unspecified asthma, uncomplicated; K21.9 Gastro-esophageal reflux disease without esophagitis; F41.9 Anxiety disorder, unspecified; F32.9 Major depressive disorder, single episode, unspecified; G89.29 Other chronic pain; M54.9 Dorsalgia, unspecified; Z88.2 Allergy status to sulfonamides; Z68.41 Body mass index [BMI] 40.0-44.9, adult; Z79.02 Long term (current) use of antithrombotics/antiplatelets; Z79.82 Long term (current) use of aspirin; Z79.51 Long term (current) use of inhaled steroids; Z79.899 Other long term (current) drug therapy
CPT/HCPCS: 36415; 70450; 70450-26; 70496; 70496-26; 70498; 70498-26; 70544; 70544-26; 70551; 70551-26; 71045; 71045-26; 80048; 80053; 80061; 82962; 83735; 84484; 85025; 85610; 85730; 92610-GN; 93005; 93306; 94640; 94760; 96361; 96374; 97110-GP; 97116-GP; 97161-GP; 97165-GO; 99284-25; A9270-GY; J1650; J2060; J7030; J7040; Q9967

== ENCOUNTER 2019-03-08 10:13 | Inpatient (IN) | payer MEDICARE, OTHER ==
[~2019-03-08 10:13] MED LIST changes: +Acetaminophen 325 MG Tab PO SCH; +Bisacodyl 5 MG Tab PO PRN; +Cyclobenzaprine 10 MG Tab PO PRN; +Lidocaine 1%/Sod Bicarbonate in NS 8.4% 1 ML Syringe IDERM PRN; +Magnesium Hydroxide 400 MG/5 ML Susp 30 ML Cup PO PRN; +Morphine 2 MG/ML Syringe IVPUSH PRN; +Naloxone 0.4 MG/ML SDV IVPUSH PRN; +Ondansetron 4 MG/2 ML SDV IVPUSH PRN; +Pregabalin 25 MG Cap PO SCH; +Ropivacaine 0.5% 5 MG/ML 30 ML SDV ONE; +Sennosides 8.6 MG Tab PO PRN; +Sodium Chloride 0.9% 10 ML Syringe FLUSH PRN; -Sodium Chloride 0.9% 500 ML IV ONE; +ceFAZolin 2 GM in Premix Bag 1 BAG IV SCH; +oxyCODONE ER 10 MG TAB.ER PO SCH
[2019-03-08] MEDS ORDERED: ceFAZolin 1 GM Vial ONE ×2 (10:19→11:34)
[2019-03-08] MEDS ORDERED: Lactated Ringers 1,000 ML ONE (10:19)
[2019-03-08] MEDS ORDERED: Rocuronium 50 MG/5 ML Vial ONE (10:19)
[2019-03-08] MEDS ORDERED: Ondansetron 4 MG/2 ML SDV ONE (10:19)
[2019-03-08] MEDS ORDERED: Propofol 200 MG/20 ML SDV ONE ×2 (10:19→13:16)
[2019-03-08] MEDS ORDERED: fentaNYL 100 MCG/2 ML SDV ONE ×2 (10:20→11:54)
[2019-03-08] MEDS ORDERED: Phenylephrine/Normal Saline 100 MCG/ML 10 ML Syringe ONE (10:27)
[2019-03-08] MEDS: Lactated Ringers 1,000 ML IV SCH ×2 (11:00→15:16)
[2019-03-08] MEDS ORDERED: Ketorolac 15 MG/ML SDV IVPUSH PRN (11:00)
[2019-03-08] MEDS ORDERED: Lidocaine 1% 2 ML ONE (11:09)
[2019-03-08] MEDS ORDERED: Midazolam Oral Soln 10 MG/5 ML Oral Syringe ONE (11:09)
[2019-03-08] MEDS ORDERED: Midazolam 1 MG/ML 2 ML SDV ONE (11:09)
[2019-03-08] MEDS ORDERED: Triamcinolone Acetonide 40 MG/ML 1 ML MDV ONE (11:33)
[2019-03-08] MEDS ORDERED: Bupivacaine 0.25% 10 ML SDV ONE (11:34)
[2019-03-08] MEDS ORDERED: Iodine/Sodium Iodide 2% Tincture 30 ML Bottle ONE (11:34)
[2019-03-08] MEDS ORDERED: Vancomycin 1 GM SDV ONE (11:34)
[2019-03-08] MEDS ORDERED: Albuterol 0.083% 2.5 MG/3 ML Neb Soln ONE (11:36)
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
[2019-03-08] MEDS ORDERED: Albuterol 0.083% 2.5 MG/3 ML Neb Soln NEB ONE (11:45)
[2019-03-08] MEDS ORDERED: Lidocaine 1% 4 ML ONE (11:53)
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
--- NOTE | 2019-03-08 12:30 | PCM.SN ---
- Free Text/Narrative Note: Anesthesia Note: (Interscalene block note) Date: 03/08/2019 Time Out: 1152 Start: 1152 Stop: 1221 Surgical Procedure: Left Reverse Total Shoulder Arthroplasty Diagnosis: Left shoulder pain Current Procedure: Left interscalene block under US guidance for postoperative pain control requested by Dr. Yarbrough. Patient chart reviewed, risk/benefits discussed with patient, consent obtained. Patient positioned supine, monitors/alarms on, oxygen placed via nasal cannula at 2 LPM. IV sedation administered: Versed 1mg IV Fentanyl 50mcg IV Left shoulder prepped with chloraprep x2. Sterile drapes placed with aseptic technique. Under US guidance (sterile US sleeve) left subclavian artery visualized along with the left brachial plexus. Plexus followed cephalad up to C6 cricoid level, and area localized with 2mls of 1% lidocaine. 22gauge 2 inch stimiplex needle inserted under US and guided to brachial plexus C5-C6 trunks with 0.44mV with stimulation of biceps noted. Stimulation abolished at 0.2mVs. with 1ml of Normal Saline injected to confirm needle not placed intraneurally. Incremental injection of 5mls with negative aspiration prior to each injection of 0.5% ropivacaine with 1:200,000 epinephrine. Total volume=30mls. Please refer to nurses notes for vital signs, patient tolerated procedure well. Thank you! Roc Finn CRNA
[2019-03-08] MEDS ORDERED: ePHEDrine/Normal Saline 25 MG/5 ML Syringe ONE ×2 (13:07→14:07)
[2019-03-08] MEDS ORDERED: Neostigmine Methylsulfate 1 MG/ML 5 ML Syringe ONE (13:54)
[2019-03-08] MEDS ORDERED: fentaNYL 100 MCG/2 ML SDV IVPUSH PRN (14:35)
[2019-03-08] MEDS ORDERED: Ondansetron 4 MG/2 ML SDV IVPUSH PRN (14:35)
--- NOTE | 2019-03-08 14:35 | CR ---
Left shoulder: Four fluoroscopic spot views were obtained utilizing C-arm device left shoulder. Comparison: Prior left shoulder MRI study of 02/04/19. Findings: Reverse left shoulder prosthetic placement is noted. Components are aligned. Fluoroscopy time given as 2.9 seconds. Impression: 1. Procedural study as noted above. Diagnostic code #2 This report was dictated in [place] Standard Time
--- NOTE | 2019-03-08 14:35 | PCM.POSTAN ---
POST ANESTHESIA ASSESSMENT - MENTAL STATUS Mental Status: Alert, Oriented - VITAL SIGNS Vital Signs: Last Vital Signs Temp 36.5 C 03/08/19 14:25 Pulse 70 03/08/19 12:19 Resp 14 03/08/19 14:25 BP 175/85 H 03/08/19 14:25 Pulse Ox 93 L 03/08/19 14:25 - RESPIRATORY Respiratory Status: Respiratory Rate WNL, Airway Patent, O2 Saturation Stable, Supplemental Oxygen - CARDIOVASCULAR CV Status: Pulse Rate WNL, Blood Pressure Stable - GASTROINTESTINAL GI Status: No Symptoms - PAIN Pain Score: 0 - POST OP HYDRATION Hydration Status: Adequate & Stable
[2019-03-08] MEDS ORDERED: Midodrine 5 MG Tab PO PRN (15:35)
[2019-03-08] MEDS ORDERED: Non-Formulary Medication 1 Each (Albuterol [Proventil Hfa] 2 PUFF) INH PRN (15:35)
--- NOTE | 2019-03-08 15:43 | CR ---
Left shoulder: Single portable AP view of the left shoulder was obtained. Comparison: Prior operative study performed earlier on same day. Findings: Reverse left shoulder prosthesis is seen. Prosthesis appears aligned. Underlying bony structures are intact. Nothing acute is seen. Impression: 1. Satisfactory appearance of recently placed left shoulder prosthesis. Diagnostic code #2 This report was dictated in [place] Standard Time
[2019-03-08] MEDS: Famotidine 20 MG Tab PO SCH ×2 (15:57→18:07)
[2019-03-08] MEDS ORDERED: Albuterol 0.083% 2.5 MG/3 ML Neb Soln NEB PRN (16:22)
[2019-03-08] MEDS: ceFAZolin 2 GM in Premix Bag 1 BAG IV SCH (18:07)
[2019-03-08] MEDS: Acetaminophen/oxyCODONE 325-5 MG Tab PO PRN ×2 (18:08→23:37)
[2019-03-08] MEDS: Docusate Sodium 100 MG Cap PO SCH (20:18)
[2019-03-08] MEDS ORDERED: TIOTROPIUM INH SCH (21:00)
[2019-03-08] MEDS ORDERED: Pravastatin Sodium 80 MG PO SCH (21:00)
[2019-03-08] MEDS ORDERED: TIMOLOL EYEBOTH SCH (21:00)
[2019-03-08] MEDS ORDERED: Montelukast 10 MG Tab PO SCH (21:00)
[2019-03-09] MEDS: ceFAZolin 2 GM in Premix Bag 1 BAG IV SCH ×2 (01:43→09:33)
[2019-03-09] MEDS: Acetaminophen/oxyCODONE 325-5 MG Tab PO PRN ×3 (05:51→13:51)
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
[2019-03-09] MEDS: Famotidine 20 MG Tab PO SCH (07:50)
[2019-03-09] MEDS: Docusate Sodium 100 MG Cap PO SCH (08:52)
[2019-03-09] MEDS ORDERED: TIOTROPIUM INH SCH (09:00)
[2019-03-09] MEDS ORDERED: Folic Acid 1 MG Tab PO SCH (09:00)
[2019-03-09] MEDS ORDERED: TIMOLOL EYEBOTH SCH (09:00)
[2019-03-09] MEDS ORDERED: Aspirin 325 MG Tab.EC PO SCH ×2 (09:00)
[2019-03-09] MEDS ORDERED: Cholecalciferol (Vitamin D3) 5,000 UNIT Tab PO SCH (09:00)
[2019-03-09] MEDS ORDERED: FLUoxetine 20 MG Cap PO SCH (09:00)
[2019-03-09] MEDS ORDERED: Multivitamins,Therapeutic Tab PO SCH (09:00)
[2019-03-09] MEDS ORDERED: Vitamin B Complex With Vitamin C Cap PO SCH (09:00)
[2019-03-09] MEDS ORDERED: Fluticasone Propionate Nasal Spray 16 GM Bottle NASBOTH SCH (09:00)
[2019-03-09] MEDS ORDERED: Clopidogrel 75 MG Tab PO SCH (09:00)
--- NOTE | 2019-03-09 11:36 | PCM48HPAN ---
Post Anesthesia Note - EVALUATION WITHIN 48HRS OF ANESTHETIC Vital Signs in Normal Range: Yes Patient Participated in Evaluation: Yes Respiratory Function Stable: Yes Airway Patent: Yes Cardiovascular Function Stable: Yes Hydration Status Stable: Yes Pain Control Satisfactory: Yes Nausea and Vomiting Control Satisfactory: Yes Mental Status Recovered: Yes Vital Signs: Last Vital Signs Temp 36.8 C 03/09/19 08:00 Pulse 85 03/09/19 08:00 Resp 20 03/09/19 08:00 BP 131/77 03/09/19 08:00 Pulse Ox 94 L 03/09/19 09:50
--- NOTE | 2019-03-09 12:16 | PCM.SURGPN ---
- General Info Date of Service: 03/09/19 POD#: 1 Functional Status: Reports: Pain Controlled, Tolerating Diet, Ambulating, Urinating, Incentive Spirometry - Patient Data Vitals - Most Recent: Last Vital Signs Temp 98.3 F 03/09/19 08:00 Pulse 85 03/09/19 08:00 Resp 20 03/09/19 08:00 BP 131/77 03/09/19 08:00 Pulse Ox 94 L 03/09/19 09:50 Weight - Most Recent: 250 lb I&O - Last 24 Hours: Intake & Output 03/08/19 03/09/19 03/09/19 22:59 06:59 14:59 Intake Total 2030 900 Output Total 900 Balance 2030 0 Lab Results Last 24 Hrs: Laboratory Results - last 24 hr 03/09/19 03/09/19 Range/Units 05:46 05:46 WBC 9.99 (3.98-10.04) K/mm3 RBC 3.49 L (3.98-5.22) M/mm3 Hgb 11.5 (11.2-15.7) gm/dl Hct 36.4 (34.1-44.9) % MCV 104.3 H D (79.4-94.8) fl MCH 33.0 H (25.6-32.2) pg MCHC 31.6 L (32.2-35.5) g/dl RDW Std Deviation 48.1 H (36.4-46.3) fL Plt Count 250 (182-369) K/mm3 MPV 11.2 (9.4-12.3) fl Sodium 136 (136-145) mEq/L Potassium 4.4 (3.5-5.1) mEq/L Chloride 102 (98-107) mEq/L Carbon Dioxide 26 (21-32) mEq/L Anion Gap 12.4 (5-15) BUN 10 (7-18) mg/dL Creatinine 0.8 (0.55-1.02) mg/dL Est Cr Clr Drug Dosing 56.36 mL/min Estimated GFR (MDRD) > 60 (>60) mL/min BUN/Creatinine Ratio 12.5 L (14-18) Glucose 118 H (83-115) mg/dL Calcium 8.1 L (8.5-10.1) mg/dL Total Bilirubin 0.4 (0.2-1.0) mg/dL AST 13 L (15-37) U/L ALT 17 (14-59) U/L Alkaline Phosphatase 52 (46-116) U/L Total Protein 6.3 L (6.4-8.2) g/dl Albumin 2.7 L (3.4-5.0) g/dl Globulin 3.6 gm/dL Albumin/Globulin Ratio 0.8 L (1-2) Med Orders - Current: Current Medications Albuterol (Proventil Neb Soln) 2.5 mg NEB Q4HRRT PRN PRN Reason: SOB/Wheezing Aspirin (Ecotrin) 325 mg PO DAILY [facility] Last Admin: 03/09/19 08:52 Dose: 325 mg Bisacodyl (Dulcolax) 5 mg PO DAILY PRN PRN Reason: Constipation Cholecalciferol (Vitamin D3) 5,000 unit PO DAILY [facility] Last Admin: 03/09/19 08:52 Dose: 5,000 unit Clopidogrel Bisulfate (Plavix) 75 mg PO DAILY [facility] Last Admin: 03/09/19 08:52 Dose: 75 mg Cyclobenzaprine HCl (Flexeril) 5 mg PO BID PRN PRN Reason: Spasms Last Admin: 03/09/19 08:53 Dose: 5 mg Docusate Sodium (Colace) 100 mg PO BID [facility] Last Admin: 03/09/19 08:52 Dose: 100 mg Famotidine (Pepcid) 20 mg PO Q12H [facility] Last Admin: 03/09/19 07:50 Dose: 20 mg Fluoxetine HCl (Prozac) 60 mg PO DAILY [facility] Last Admin: 03/09/19 08:52 Dose: 60 mg Fluticasone Propionate (Flonase) 0 gm NASBOTH DAILY [facility] Last Admin: 03/09/19 08:56 Dose: 1 spray Folic Acid (Folic Acid) 1 mg PO DAILY [facility] Last Admin: 03/09/19 08:52 Dose: 1 mg Ketorolac Tromethamine (Toradol) 15 mg IVPUSH Q6H PRN PRN Reason: Pain Last Admin: 03/09/19 01:16 Dose: 15 mg Magnesium Hydroxide (Milk Of Magnesia) 30 ml PO BID PRN PRN Reason: Constipation Midodrine (Midodrine) 5 mg PO DAILY PRN PRN Reason: Hypotension Montelukast Sodium (Singulair) 10 mg PO BEDTIME [facility] Last Admin: 03/08/19 20:18 Dose: 10 mg Morphine Sulfate (Morphine) 2 mg IVPUSH Q2H PRN PRN Reason: Breakthrough Pain Multivitamins (Thera) 1 each PO DAILY [facility] Last Admin: 03/09/19 08:52 Dose: 1 each Naloxone HCl (Narcan) 0.1 mg IVPUSH Q5M PRN PRN Reason: Oversedation Ondansetron HCl (Zofran) 4 mg IVPUSH Q6H PRN PRN Reason: Nausea/Vomiting Last Admin: 03/08/19 15:48 Dose: 4 mg Oxycodone/Acetaminophen (Percocet 325-5 Mg) 1 - 2 tab PO Q4H PRN PRN Reason: Pain Last Admin: 03/09/19 08:53 Dose: 2 tab (Budesonide/Formoterol 160/4.5)* Pt Own Med* 0 each INH BID [facility] Last Admin: 03/09/19 09:49 Dose: 2 each (Dorzolamide [ Trusopt 2% Ophth Soln]*Pt Own Med* 0 each EYEBOTH BID [facility] Last Admin: 03/09/19 08:56 Dose: 1 each Pravastatin Sodium (80 Mg) 0 each PO BEDTIME [facility] Last Admin: 03/08/19 20:21 Dose: Not Given Timolol Opthalmic 0. (25% *Pt Own Med*) 0 each EYEBOTH BEDTIME [facility] Last Admin: 03/08/19 21:00 Dose: 1 each Tiotropium Inh *Pt (Own Med*) 0 each INH BEDTIME [facility] Last Admin: 03/08/19 20:40 Dose: 2 each Senna (Senna) 8.6 mg PO BID PRN PRN Reason: Constipation Vitamin B Complex/Vitamin C (Super B With Vitamin C) 1 cap PO DAILY [facility] Last Admin: 03/09/19 08:52 Dose: 1 cap Discontinued Medications Acetaminophen (Tylenol) 975 mg PO ONETIME [facility] Stop: 03/08/19 12:00 Last Admin: 03/08/19 10:47 Dose: 975 mg Albuterol (Proventil Neb Soln) 2.5 mg NEB ONETIME ONE Stop: 03/08/19 11:46 Last Admin: 03/08/19 11:38 Dose: 2.5 mg Albuterol (Proventil Neb Soln) Confirm Administered Dose 2.5 mg .ROUTE .STK-MED ONE Stop: 03/08/19 11:37 Last Admin: 03/08/19 15:57 Dose: Not Given Aspirin (Ecotrin) 325 mg PO BID [facility] Bupivacaine HCl (Sensorcaine-Mpf 0.25%) Confirm Administered Dose 10 ml .ROUTE .STK-MED ONE Stop: 03/08/19 11:35 Last Admin: 03/08/19 14:14 Dose: 4 ml Cefazolin Sodium (Ancef) Confirm Administered Dose 2 gm .ROUTE .STK-MED ONE Stop: 03/08/19 10:20 Last Admin: 03/08/19 13:47 Dose: 2 gm Cefazolin Sodium (Ancef) Confirm Administered Dose 2 gm .ROUTE .STK-MED ONE Stop: 03/08/19 11:35 Ephedrine Sulfate (Ephedrine In Ns) Confirm Administered Dose 25 mg .ROUTE .STK- MED ONE Stop: 03/08/19 13:08 Ephedrine Sulfate (Ephedrine In Ns) Confirm Administered Dose 25 mg .ROUTE .STK- MED ONE Stop: 03/08/19 14:08 Fentanyl (Sublimaze) Confirm Administered Dose 100 mcg .ROUTE .STK-MED ONE Stop: 03/08/19 10:21 Fentanyl (Sublimaze) Confirm Administered Dose 100 mcg .ROUTE .STK-MED ONE Stop: 03/08/19 11:55 Fentanyl (Sublimaze) 50 mcg IVPUSH Q5M PRN PRN Reason: pain Stop: 03/08/19 17:00 Glycopyrrolate () Confirm Administered Dose 1 mg .ROUTE .STK-MED ONE Stop: 03/08/19 13:55 Lactated Ringer's (Ringers, Lactated) 1,000 mls @ 125 mls/hr IV ASDIRECTED [facility] Stop: 03/08/19 23:00 Last Admin: 03/08/19 15:16 Dose: 125 mls/hr Cefazolin Sodium/Dextrose 2 gm (/ Premix) 50 mls @ 100 mls/hr IV Q8H [facility] Stop: 03/08/19 23:29 Last Admin: 03/09/19 02:07 Dose: Not Given Lactated Ringer's (Ringers, Lactated) Confirm Administered Dose 1,000 mls @ as directed .ROUTE .STK-MED ONE Stop: 03/08/19 10:20 Lidocaine HCl (Xylocaine-Mpf 1%) Confirm Administered Dose 2 mls @ as directed .ROUTE .STK-MED ONE Stop: 03/08/19 11:10 Cefazolin Sodium/Dextrose 2 gm (/ Premix) 50 mls @ 100 mls/hr IV Q8H [facility] Stop: 03/09/19 10:59 Last Admin: 03/09/19 09:33 Dose: 100 mls/hr Lidocaine HCl (Xylocaine-Mpf 1%) Confirm Administered Dose 4 mls @ as directed .ROUTE .STK-MED ONE Stop: 03/08/19 11:54 Iodine (Iodine 2% Mild Tincture) Confirm Administered Dose 30 ml .ROUTE .STK- MED ONE Stop: 03/08/19 11:35 Last Admin: 03/08/19 13:46 Dose: 17 ml Lidocaine/Sodium Bicarbonate (Buffered Lidocaine 1% In Ns 8.4%) 0.25 ml IDERM ONETIME PRN PRN Reason: Prior to IV Start Stop: 03/08/19 23:00 Last Admin: 03/08/19 10:59 Dose: 0.25 ml Midazolam HCl (Versed 2 Mg/Ml) Confirm Administered Dose 10 mg .ROUTE .STK-MED ONE Stop: 03/08/19 11:10 Midazolam HCl (Versed 1 Mg/Ml) Confirm Administered Dose 2 mg .ROUTE .STK-MED ONE Stop: 03/08/19 11:10 Neostigmine Methylsulfate (Neostigmine) Confirm Administered Dose 5 mg .ROUTE .STK-MED ONE Stop: 03/08/19 13:55 Non-Formulary Medication (Albuterol [Proventil Hfa]) 2 puff INH QID PRN PRN Reason: Shortness of Breath Ondansetron HCl (Zofran) Confirm Administered Dose 4 mg .ROUTE .STK-MED ONE Stop: 03/08/19 10:20 Ondansetron HCl (Zofran) 4 mg IVPUSH ONETIME PRN PRN Reason: Nausea/Vomiting Stop: 03/08/19 17:00 Oxycodone HCl (Oxycontin) 10 mg PO ONETIME [facility] Stop: 03/08/19 12:00 Last Admin: 03/08/19 10:47 Dose: 10 mg Timolol Opthalmic 0. (25% *Pt Own Med*) 0 each EYEBOTH DAILY [facility] Tiotropium Inh *Pt (Own Med*) 0 each INH DAILY [facility] Phenylephrine HCl (Phenylephrine In Ns 100 Mcg/Ml) Confirm Administered Dose 1 mg .ROUTE .STK-MED ONE Stop: 03/08/19 10:28 Pregabalin (Lyrica) 50 mg PO ONETIME [facility] Stop: 03/08/19 12:00 Last Admin: 03/08/19 10:47 Dose: 50 mg Propofol (Diprivan 20 Ml) Confirm Administered Dose 200 mg .ROUTE .STK-MED ONE Stop: 03/08/19 10:20 Propofol (Diprivan 20 Ml) Confirm Administered Dose 200 mg .ROUTE .STK-MED ONE Stop: 03/08/19 13:17 Rocuronium Rousseau (Zemuron) Confirm Administered Dose 50 mg .ROUTE .STK-MED ONE Stop: 03/08/19 10:20 Ropivacaine (Naropin 0.5%) Confirm Administered Dose 30 ml .ROUTE .STK-MED ONE Stop: 03/08/19 07:28 Sodium Chloride (Saline Flush) 10 ml FLUSH ASDIRECTED PRN PRN Reason: Keep Vein Open Stop: 03/08/19 23:00 Tranexamic Acid (Cyklokapron) Confirm Administered Dose 1,000 mg .ROUTE .STK- MED ONE Stop: 03/08/19 11:34 Last Admin: 03/08/19 13:53 Dose: 1,000 mg Triamcinolone Acetonide (Kenalog-40) Confirm Administered Dose 80 mg .ROUTE .STK -MED ONE Stop: 03/08/19 11:34 Last Admin: 03/08/19 14:14 Dose: 80 mg Vancomycin HCl (Vancomycin) Confirm Administered Dose 1 gm .ROUTE .STK-MED ONE Stop: 03/08/19 11:35 Last Admin: 03/08/19 13:53 Dose: 1 gm - Exam Wound/Incisions: Dressing Dry and Intact General: Alert, Cooperative, No Acute Distress Lungs: Normal Respiratory Effort Extremities: Other (NVS intact for LUE. Active left hand/wrist and elbow motion noted. Willem's negative for BLE also.) Sepsis Event Note - Evaluation Sepsis Screening Result: No Definite Risk - Focused Exam Vital Signs: Vital Signs Temp Pulse Resp BP Pulse Ox Pulse Ox 03/09/19 09:50 94 L 03/09/19 08:00 98.3 F 85 20 131/77 94 L 03/09/19 07:37 94 L 03/09/19 00:35 98.6 F 18 132/72 Date Exam was Performed: 03/09/19 Time Exam was Performed: 12:42 - Problem List Review Problem List Initiated/Reviewed/Updated: Yes - My Orders Last 24 Hours: Active Orders 24 hr Category Date Time Status Patient Status [ADT] Routine ADT 03/08/19 21:05 Active RT Aerosol Therapy [RC] ASDIRECTED Care 03/08/19 11:33 Active Ready for Discharge [RC] PER UNIT ROUTINE Care 03/09/19 08:23 Active Consult to Respiratory Therapy [Respiratory Care Assess Cons 03/08/19 16:24 Active and Treatment] [CONS] Routine Albuterol [Proventil Neb Soln] Med 03/08/19 16:22 Active 2.5 mg NEB Q4HRRT PRN Aspirin [Ecotrin] Med 03/09/19 09:00 Active 325 mg PO DAILY Cholecalciferol (Vitamin D3) [Vitamin D3] Med 03/09/19 09:00 Active 5,000 unit PO DAILY Clopidogrel [Plavix] Med 03/09/19 09:00 Active 75 mg PO DAILY Docusate Sodium [Colace] Med 03/08/19 21:00 Active 100 mg PO BID FLUoxetine [PROzac] Med 03/09/19 09:00 Active 60 mg PO DAILY Fluticasone Propionate [Flonase] Med 03/09/19 09:00 Active 0 gm NASBOTH DAILY Folic Acid Med 03/09/19 09:00 Active 1 mg PO DAILY Midodrine Med 03/08/19 15:35 Active 5 mg PO DAILY PRN Montelukast [Singulair] Med 03/08/19 21:00 Active 10 mg PO BEDTIME Multivitamins,Therapeutic [Thera] Med 03/09/19 09:00 Active 1 each PO DAILY Patient's Own Medication [Ptom] Med 03/08/19 21:00 Active 0 each EYEBOTH BEDTIME Patient's Own Medication [Ptom] Med 03/08/19 21:00 Active 0 each EYEBOTH BID Patient's Own Medication [Ptom] Med 03/08/19 21:00 Active 0 each INH BEDTIME Patient's Own Medication [Ptom] Med 03/08/19 21:00 Active 0 each INH BID Patient's Own Medication [Ptom] Med 03/08/19 21:00 Active 0 each PO BEDTIME Vitamin B Complex with C [Super B With Vitamin C] Med 03/09/19 09:00 Active 1 cap PO DAILY Medication Orders Albuterol (Proventil Neb Soln) 2.5 mg NEB Q4HRRT PRN PRN Reason: SOB/Wheezing Aspirin (Ecotrin) 325 mg PO DAILY [facility] Last Admin: 03/09/19 08:52 Dose: 325 mg Bisacodyl (Dulcolax) 5 mg PO DAILY PRN PRN Reason: Constipation Cholecalciferol (Vitamin D3) 5,000 unit PO DAILY [facility] Last Admin: 03/09/19 08:52 Dose: 5,000 unit Clopidogrel Bisulfate (Plavix) 75 mg PO DAILY [facility] Last Admin: 03/09/19 08:52 Dose: 75 mg Cyclobenzaprine HCl (Flexeril) 5 mg PO BID PRN PRN Reason: Spasms Last Admin: 03/09/19 08:53 Dose: 5 mg Docusate Sodium (Colace) 100 mg PO BID [facility] Last Admin: 03/09/19 08:52 Dose: 100 mg Admin: 03/08/19 20:18 Dose: 100 mg Famotidine (Pepcid) 20 mg PO Q12H [facility] Last Admin: 03/09/19 07:50 Dose: 20 mg Admin: 03/08/19 18:07 Dose: 20 mg Admin: 03/08/19 15:57 Dose: Fluoxetine HCl (Prozac) 60 mg PO DAILY [facility] Last Admin: 03/09/19 08:52 Dose: 60 mg Fluticasone Propionate (Flonase) 0 gm NASBOTH DAILY [facility] Last Admin: 03/09/19 08:56 Dose: 1 spray Folic Acid (Folic Acid) 1 mg PO DAILY [facility] Last Admin: 03/09/19 08:52 Dose: 1 mg Ketorolac Tromethamine (Toradol) 15 mg IVPUSH Q6H PRN PRN Reason: Pain Last Admin: 03/09/19 01:16 Dose: 15 mg Magnesium Hydroxide (Milk Of Magnesia) 30 ml PO BID PRN PRN Reason: Constipation Midodrine (Midodrine) 5 mg PO DAILY PRN PRN Reason: Hypotension Montelukast Sodium (Singulair) 10 mg PO BEDTIME [facility] Last Admin: 03/08/19 20:18 Dose: 10 mg Morphine Sulfate (Morphine) 2 mg IVPUSH Q2H PRN PRN Reason: Breakthrough Pain Multivitamins (Thera) 1 each PO DAILY [facility] Last Admin: 03/09/19 08:52 Dose: 1 each Naloxone HCl (Narcan) 0.1 mg IVPUSH Q5M PRN PRN Reason: Oversedation Ondansetron HCl (Zofran) 4 mg IVPUSH Q6H PRN PRN Reason: Nausea/Vomiting Last Admin: 03/08/19 15:48 Dose: 4 mg Oxycodone/Acetaminophen (Percocet 325-5 Mg) 1 - 2 tab PO Q4H PRN PRN Reason: Pain Last Admin: 03/09/19 08:53 Dose: 2 tab Admin: 03/09/19 05:51 Dose: 2 tab Admin: 03/08/19 23:37 Dose: 2 tab Admin: 03/08/19 18:08 Dose: 2 tab (Budesonide/Formoterol 160/4.5)* Pt Own Med* 0 each INH BID [facility] Last Admin: 03/09/19 09:49 Dose: 2 each Admin: 03/08/19 20:39 Dose: 2 each (Dorzolamide [ Trusopt 2% Ophth Soln]*Pt Own Med* 0 each EYEBOTH BID [facility] Last Admin: 03/09/19 08:56 Dose: 1 each Admin: 03/08/19 20:23 Dose: 1 each Pravastatin Sodium (80 Mg) 0 each PO BEDTIME [facility] Last Admin: 03/08/19 20:21 Dose: Timolol Opthalmic 0. (25% *Pt Own Med*) 0 each EYEBOTH BEDTIME [facility] Last Admin: 03/08/19 21:00 Dose: 1 each Tiotropium Inh *Pt (Own Med*) 0 each INH BEDTIME [facility] Last Admin: 03/08/19 20:40 Dose: 2 each Senna (Senna) 8.6 mg PO BID PRN PRN Reason: Constipation Vitamin B Complex/Vitamin C (Super B With Vitamin C) 1 cap PO DAILY [facility] Last Admin: 03/09/19 08:52 Dose: 1 cap - Assessment Assessment (Free Text/Narrative):: POD#1 - left reverse TSA - Plan Plan (Free Text/Narrative):: 1. Hgb 11.5. 2. Plavix and 325mg ASA for VTE prophylaxis. 3. Outpatient therapy. 4. Discharge to home today. The pt's case was discussed with Dr. Yarbrough.
--- NOTE | 2019-03-09 12:35 | PCM.DCSUM1 ---
Discharge Summary - Hospital Course Brief History: Rosio is a 73 yo female who underwent left reverse TSA with right shoulder cortisone injection with Dr. Yarbrough on 03-08-2019. The procedure was completed under general anesthesia with regional block. The pt tolerated the procedure well and was admitted to the Medical-Surgical Unit. Medical management was provided by the Hospitalist service. The pt's Hospital course was uneventful. The pt's Hgb on POD#1 was 11.5. On POD#1, the pt resumed use of Plavix and initiated 325mg ASA daily for VTE prophylaxis. SCDs and TEDs were also ordered. A Mepilex dressing was placed at the incision site at the time of surgery and remained clean and dry. The pt participated in P.T. and O.T. and progressed well. On POD#1, the pt was deemed appropriate to discharge to home. - Discharge Data Discharge Date: 03/09/19 Discharge Disposition: Home, Self-Care 01 Condition: Good - Referral to Home Health Primary Care Physician: Mali Forte [employer] LATHE [employer]ER - Patient Summary/Data Consults: Consultations 03/08/19 06:58 OT Evaluation and Treatment [CONS] Routine PT Evaluation and Treatment [CONS] Routine 03/08/19 07:00 Consult to Physician [CONS] Routine 03/08/19 16:24 Consult to Respiratory Therapy [Respiratory Care Assess and Treatment] [CONS] Routine - Patient Instructions Diet: Usual Diet as Tolerated Activity: Apply Ice, As Tolerated, Elevate Extremity Activity, Other: No forceful use of the surgial limb. Driving: Do Not Drive Showering/Bathing: May Shower Wound/Incision Care: Keep Operative Site/Wound Site Clean and Dry, Do NOT Change Dressing Notify Provider of: Fever, Increased Pain, Swelling and Redness, Drainage, Nausea and/or Vomiting Other/Special Instructions: Please get up and moving around EVERY HOUR while awake. This helps to prevent blood clots. Please have help with mobility as needed. Take a short walk in your home every hour while awake. Please resume use of Plavix. Please use a 325mg aspirin at this time. You will HOLD use of the 81mg aspirin while using the 325mg aspirin. The higher dose of aspirin is being used for blood clot prevention. When the 325mg aspirin course is complete , please return to use of an 81mg aspirin. At home, please complete the exercises that you learned during the Hospital stay. Schedule for physical or occupational therapy. Use the pain medication as needed. The medication may cause drowsiness and constipation. Contact your primary care provider for instructions if you are constipated. You may use a stool softener like docusate sodium or Colace 100mg twice daily and/or a laxative like Miralax daily for constipation. Increase your water and fiber intake while you are using the pain medication. Discontinue use of the pain medication as soon as able. Please do not use other medications that may cause drowsiness (other pain medications, anxiety pills, cold medications, sleeping pills, etc) while using the prescription pain medication. Do not use alcohol while using the pain medication. You may use acetaminophen or Tylenol for pain management, however, please ensure you are not using over 4000 mg or 4 grams of acetaminophen per day from all sources. Your pain medication has 325mg of acetaminophen per tablet. Wear the AMBROSE hose during the day and you may remove these at night. Elevate the limb to decrease swelling. Place ice to the area often. Place a towel between your skin and the blue pad. Use the incentive spirometer often. Take deep breaths throughout the day. Please keep the dressing in place until follow-up. Notify the Clinic if the dressing becomes saturated. Increase your protein intake while you are healing. If you have diabetes, please closely monitor your blood sugars and notify your primary care provider with abnormal values. Elevated blood sugars increases the risk of infection. Call the Clinic with questions or concerns - [phone]. - Discharge Plan *PRESCRIPTION DRUG MONITORING PROGRAM REVIEWED*: No *COPY OF PRESCRIPTION DRUG MONITORING REPORT IN PATIENT JOSE D: No Prescriptions/Med Rec: Acetaminophen/oxyCODONE [Percocet 325-5 MG] 1 - 2 tab PO Q4H PRN #60 tablet PRN Reason: Pain Aspirin [Ecotrin EC] 325 mg PO DAILY #30 tab.ec Cyclobenzaprine [Flexeril] 5 mg PO BID PRN #20 tablet PRN Reason: Spasms Home Medications: Home Meds FLUoxetine [PROzac] 60 mg PO DAILY 10/03/15 [History] Clopidogrel [Plavix] 75 mg PO DAILY 04/18/16 [History] Midodrine 5 mg PO DAILY PRN 04/18/16 [History] Dorzolamide [Trusopt 2% Ophth Soln] 1 drop EYEBOTH BID 11/13/17 [History] Folic Acid 0.8 mg PO DAILY 11/13/17 [History] Multivitamin [Poly-Vitamin] 1 tab PO DAILY 11/13/17 [History] Timolol [Betimol] 1 drop EYEBOTH DAILY 11/13/17 [History] Vitamin B Complex [B Complex] 1 tab PO DAILY 11/13/17 [History] Albuterol [Proventil HFA] 2 puff INH QID PRN 12/01/18 [History] Fluticasone Propionate [Flonase] 16 gm NASBOTH DAILY 12/01/18 [History] Montelukast Sodium [Singulair] 10 mg PO BEDTIME 12/01/18 [History] Tiotropium [Spiriva HandiHaler] 2 puff INH DAILY 12/01/18 [History] Acetaminophen [Tylenol] 650 mg PO Q6H PRN 03/05/19 [History] Budesonide/Formoterol Fumarate [Symbicort 160-4.5 Mcg Inhaler] 2 puff INH BID [History] Pravastatin Sodium 80 mg PO BEDTIME 03/05/19 [History] Cholecalciferol (Vitamin D3) [Vitamin D3] 5,000 unit PO DAILY 03/08/19 [History] Acetaminophen/oxyCODONE [Percocet 325-5 MG] 1 - 2 tab PO Q4H PRN #60 tablet 01/16 [Rx] Aspirin [Ecotrin EC] 325 mg PO DAILY #30 tab.ec 03/09/19 [Rx] Bisacodyl [Dulcolax] 5 mg PO DAILY PRN tablet 03/09/19 [Rx] Cyclobenzaprine [Flexeril] 5 mg PO BID PRN #20 tablet 03/09/19 [Rx] Docusate Sodium [Colace] 100 mg PO BID cap 03/09/19 [Rx] Famotidine [Pepcid] 20 mg PO Q12H tablet 03/09/19 [Rx] Magnesium Hydroxide [Milk of Magnesia] 30 ml PO BID PRN cup 03/09/19 [Rx] Sennosides [Senna] 8.6 mg PO BID PRN tablet 03/09/19 [Rx] Patient Handouts: Aspirin, ASA oral tablets Referrals: Rebecca Freeman PA-C [Physician Director Insurance] - () - Discharge Summary/Plan Comment DC Time >30 min.: No - Patient Data Vitals - Most Recent: Last Vital Signs Temp 98.3 F 03/09/19 08:00 Pulse 85 03/09/19 08:00 Resp 20 03/09/19 08:00 BP 131/77 03/09/19 08:00 Pulse Ox 94 L 03/09/19 09:50 Weight - Most Recent: 250 lb I&O - Last 24 hours: Intake & Output 03/08/19 03/09/19 03/09/19 22:59 06:59 14:59 Intake Total 2030 900 Output Total 900 Balance 2030 0 Lab Results - Last 24 hrs: Laboratory Results - last 24 hr 03/09/19 03/09/19 Range/Units 05:46 05:46 WBC 9.99 (3.98-10.04) K/mm3 RBC 3.49 L (3.98-5.22) M/mm3 Hgb 11.5 (11.2-15.7) gm/dl Hct 36.4 (34.1-44.9) % MCV 104.3 H D (79.4-94.8) fl MCH 33.0 H (25.6-32.2) pg MCHC 31.6 L (32.2-35.5) g/dl RDW Std Deviation 48.1 H (36.4-46.3) fL Plt Count 250 (182-369) K/mm3 MPV 11.2 (9.4-12.3) fl Sodium 136 (136-145) mEq/L Potassium 4.4 (3.5-5.1) mEq/L Chloride 102 (98-107) mEq/L Carbon Dioxide 26 (21-32) mEq/L Anion Gap 12.4 (5-15) BUN 10 (7-18) mg/dL Creatinine 0.8 (0.55-1.02) mg/dL Est Cr Clr Drug Dosing 56.36 mL/min Estimated GFR (MDRD) > 60 (>60) mL/min BUN/Creatinine Ratio 12.5 L (14-18) Glucose 118 H (83-115) mg/dL Calcium 8.1 L (8.5-10.1) mg/dL Total Bilirubin 0.4 (0.2-1.0) mg/dL AST 13 L (15-37) U/L ALT 17 (14-59) U/L Alkaline Phosphatase 52 (46-116) U/L Total Protein 6.3 L (6.4-8.2) g/dl Albumin 2.7 L (3.4-5.0) g/dl Globulin 3.6 gm/dL Albumin/Globulin Ratio 0.8 L (1-2) Med Orders - Current: Current Medications Albuterol (Proventil Neb Soln) 2.5 mg NEB Q4HRRT PRN PRN Reason: SOB/Wheezing Aspirin (Ecotrin) 325 mg PO DAILY [facility] Last Admin: 03/09/19 08:52 Dose: 325 mg Bisacodyl (Dulcolax) 5 mg PO DAILY PRN PRN Reason: Constipation Cholecalciferol (Vitamin D3) 5,000 unit PO DAILY [facility] Last Admin: 03/09/19 08:52 Dose: 5,000 unit Clopidogrel Bisulfate (Plavix) 75 mg PO DAILY [facility] Last Admin: 03/09/19 08:52 Dose: 75 mg Cyclobenzaprine HCl (Flexeril) 5 mg PO BID PRN PRN Reason: Spasms Last Admin: 03/09/19 08:53 Dose: 5 mg Docusate Sodium (Colace) 100 mg PO BID [facility] Last Admin: 03/09/19 08:52 Dose: 100 mg Famotidine (Pepcid) 20 mg PO Q12H [facility] Last Admin: 03/09/19 07:50 Dose: 20 mg Fluoxetine HCl (Prozac) 60 mg PO DAILY [facility] Last Admin: 03/09/19 08:52 Dose: 60 mg Fluticasone Propionate (Flonase) 0 gm NASBOTH DAILY [facility] Last Admin: 03/09/19 08:56 Dose: 1 spray Folic Acid (Folic Acid) 1 mg PO DAILY [facility] Last Admin: 03/09/19 08:52 Dose: 1 mg Ketorolac Tromethamine (Toradol) 15 mg IVPUSH Q6H PRN PRN Reason: Pain Last Admin: 03/09/19 01:16 Dose: 15 mg Magnesium Hydroxide (Milk Of Magnesia) 30 ml PO BID PRN PRN Reason: Constipation Midodrine (Midodrine) 5 mg PO DAILY PRN PRN Reason: Hypotension Montelukast Sodium (Singulair) 10 mg PO BEDTIME [facility] Last Admin: 03/08/19 20:18 Dose: 10 mg Morphine Sulfate (Morphine) 2 mg IVPUSH Q2H PRN PRN Reason: Breakthrough Pain Multivitamins (Thera) 1 each PO DAILY [facility] Last Admin: 03/09/19 08:52 Dose: 1 each Naloxone HCl (Narcan) 0.1 mg IVPUSH Q5M PRN PRN Reason: Oversedation Ondansetron HCl (Zofran) 4 mg IVPUSH Q6H PRN PRN Reason: Nausea/Vomiting Last Admin: 03/08/19 15:48 Dose: 4 mg Oxycodone/Acetaminophen (Percocet 325-5 Mg) 1 - 2 tab PO Q4H PRN PRN Reason: Pain Last Admin: 03/09/19 08:53 Dose: 2 tab (Budesonide/Formoterol 160/4.5)* Pt Own Med* 0 each INH BID [facility] Last Admin: 03/09/19 09:49 Dose: 2 each (Dorzolamide [ Trusopt 2% Ophth Soln]*Pt Own Med* 0 each EYEBOTH BID [facility] Last Admin: 03/09/19 08:56 Dose: 1 each Pravastatin Sodium (80 Mg) 0 each PO BEDTIME [facility] Last Admin: 03/08/19 20:21 Dose: Not Given Timolol Opthalmic 0. (25% *Pt Own Med*) 0 each EYEBOTH BEDTIME [facility] Last Admin: 03/08/19 21:00 Dose: 1 each Tiotropium Inh *Pt (Own Med*) 0 each INH BEDTIME [facility] Last Admin: 03/08/19 20:40 Dose: 2 each Senna (Senna) 8.6 mg PO BID PRN PRN Reason: Constipation Vitamin B Complex/Vitamin C (Super B With Vitamin C) 1 cap PO DAILY [facility] Last Admin: 03/09/19 08:52 Dose: 1 cap Discontinued Medications Acetaminophen (Tylenol) 975 mg PO ONETIME [facility] Stop: 03/08/19 12:00 Last Admin: 03/08/19 10:47 Dose: 975 mg Albuterol (Proventil Neb Soln) 2.5 mg NEB ONETIME ONE Stop: 03/08/19 11:46 Last Admin: 03/08/19 11:38 Dose: 2.5 mg Albuterol (Proventil Neb Soln) Confirm Administered Dose 2.5 mg .ROUTE .STK-MED ONE Stop: 03/08/19 11:37 Last Admin: 03/08/19 15:57 Dose: Not Given Aspirin (Ecotrin) 325 mg PO BID [facility] Bupivacaine HCl (Sensorcaine-Mpf 0.25%) Confirm Administered Dose 10 ml .ROUTE .STK-MED ONE Stop: 03/08/19 11:35 Last Admin: 03/08/19 14:14 Dose: 4 ml Cefazolin Sodium (Ancef) Confirm Administered Dose 2 gm .ROUTE .STK-MED ONE Stop: 03/08/19 10:20 Last Admin: 03/08/19 13:47 Dose: 2 gm Cefazolin Sodium (Ancef) Confirm Administered Dose 2 gm .ROUTE .STK-MED ONE Stop: 03/08/19 11:35 Ephedrine Sulfate (Ephedrine In Ns) Confirm Administered Dose 25 mg .ROUTE .STK- MED ONE Stop: 03/08/19 13:08 Ephedrine Sulfate (Ephedrine In Ns) Confirm Administered Dose 25 mg .ROUTE .STK- MED ONE Stop: 03/08/19 14:08 Fentanyl (Sublimaze) Confirm Administered Dose 100 mcg .ROUTE .STK-MED ONE Stop: 03/08/19 10:21 Fentanyl (Sublimaze) Confirm Administered Dose 100 mcg .ROUTE .STK-MED ONE Stop: 03/08/19 11:55 Fentanyl (Sublimaze) 50 mcg IVPUSH Q5M PRN PRN Reason: pain Stop: 03/08/19 17:00 Glycopyrrolate () Confirm Administered Dose 1 mg .ROUTE .STK-MED ONE Stop: 03/08/19 13:55 Lactated Ringer's (Ringers, Lactated) 1,000 mls @ 125 mls/hr IV ASDIRECTED [facility] Stop: 03/08/19 23:00 Last Admin: 03/08/19 15:16 Dose: 125 mls/hr Cefazolin Sodium/Dextrose 2 gm (/ Premix) 50 mls @ 100 mls/hr IV Q8H [facility] Stop: 03/08/19 23:29 Last Admin: 03/09/19 02:07 Dose: Not Given Lactated Ringer's (Ringers, Lactated) Confirm Administered Dose 1,000 mls @ as directed .ROUTE .STK-MED ONE Stop: 03/08/19 10:20 Lidocaine HCl (Xylocaine-Mpf 1%) Confirm Administered Dose 2 mls @ as directed .ROUTE .STK-MED ONE Stop: 03/08/19 11:10 Cefazolin Sodium/Dextrose 2 gm (/ Premix) 50 mls @ 100 mls/hr IV Q8H [facility] Stop: 03/09/19 10:59 Last Admin: 03/09/19 09:33 Dose: 100 mls/hr Lidocaine HCl (Xylocaine-Mpf 1%) Confirm Administered Dose 4 mls @ as directed .ROUTE .STK-MED ONE Stop: 03/08/19 11:54 Iodine (Iodine 2% Mild Tincture) Confirm Administered Dose 30 ml .ROUTE .STK- MED ONE Stop: 03/08/19 11:35 Last Admin: 03/08/19 13:46 Dose: 17 ml Lidocaine/Sodium Bicarbonate (Buffered Lidocaine 1% In Ns 8.4%) 0.25 ml IDERM ONETIME PRN PRN Reason: Prior to IV Start Stop: 03/08/19 23:00 Last Admin: 03/08/19 10:59 Dose: 0.25 ml Midazolam HCl (Versed 2 Mg/Ml) Confirm Administered Dose 10 mg .ROUTE .STK-MED ONE Stop: 03/08/19 11:10 Midazolam HCl (Versed 1 Mg/Ml) Confirm Administered Dose 2 mg .ROUTE .STK-MED ONE Stop: 03/08/19 11:10 Neostigmine Methylsulfate (Neostigmine) Confirm Administered Dose 5 mg .ROUTE .STK-MED ONE Stop: 03/08/19 13:55 Non-Formulary Medication (Albuterol [Proventil Hfa]) 2 puff INH QID PRN PRN Reason: Shortness of Breath Ondansetron HCl (Zofran) Confirm Administered Dose 4 mg .ROUTE .STK-MED ONE Stop: 03/08/19 10:20 Ondansetron HCl (Zofran) 4 mg IVPUSH ONETIME PRN PRN Reason: Nausea/Vomiting Stop: 03/08/19 17:00 Oxycodone HCl (Oxycontin) 10 mg PO ONETIME [facility] Stop: 03/08/19 12:00 Last Admin: 03/08/19 10:47 Dose: 10 mg Timolol Opthalmic 0. (25% *Pt Own Med*) 0 each EYEBOTH DAILY [facility] Tiotropium Inh *Pt (Own Med*) 0 each INH DAILY [facility] Phenylephrine HCl (Phenylephrine In Ns 100 Mcg/Ml) Confirm Administered Dose 1 mg .ROUTE .STK-MED ONE Stop: 03/08/19 10:28 Pregabalin (Lyrica) 50 mg PO ONETIME [facility] Stop: 03/08/19 12:00 Last Admin: 03/08/19 10:47 Dose: 50 mg Propofol (Diprivan 20 Ml) Confirm Administered Dose 200 mg .ROUTE .STK-MED ONE Stop: 03/08/19 10:20 Propofol (Diprivan 20 Ml) Confirm Administered Dose 200 mg .ROUTE .STK-MED ONE Stop: 03/08/19 13:17 Rocuronium [place] (Zemuron) Confirm Administered Dose 50 mg .ROUTE .STK-MED ONE Stop: 03/08/19 10:20 Ropivacaine (Naropin 0.5%) Confirm Administered Dose 30 ml .ROUTE .STK-MED ONE Stop: 03/08/19 07:28 Sodium Chloride (Saline Flush) 10 ml FLUSH ASDIRECTED PRN PRN Reason: Keep Vein Open Stop: 03/08/19 23:00 Tranexamic Acid (Cyklokapron) Confirm Administered Dose 1,000 mg .ROUTE .STK- MED ONE Stop: 03/08/19 11:34 Last Admin: 03/08/19 13:53 Dose: 1,000 mg Triamcinolone Acetonide (Kenalog-40) Confirm Administered Dose 80 mg .ROUTE .STK -MED ONE Stop: 03/08/19 11:34 Last Admin: 03/08/19 14:14 Dose: 80 mg Vancomycin HCl (Vancomycin) Confirm Administered Dose 1 gm .ROUTE .STK-MED ONE Stop: 03/08/19 11:35 Last Admin: 03/08/19 13:53 Dose: 1 gm
[2019-03-09 15:02] VITALS: BP 125/63; PULSE 81
--- NOTE | 2019-03-12 14:19 | PCM.OPNOTE ---
- General Post-Op/Procedure Note Date of Surgery/Procedure: 03/08/19 Operative Procedure(s): left reverse total shoulder arthroplasty with right shoulder corticosteroid injection Pre Op Diagnosis: bilateral rotator cuff tear arthropathy Post-Op Diagnosis: Same Anesthesia Technique: General ET Tube, Regional Block Primary Surgeon: Neville Yarbrough Anesthesia Provider: Sarahi Grajeda Retail Event Coordinator: Rebecca Freeman Retail Event Coordinator: Eleanor Hyman EBL in mLs: 300 Complications: None Condition: Good Free Text/Narrative:: 11 stem 28 baseplate 32+6 4 poly
--- NOTE | 2019-03-12 15:20 | OR ---
DATE OF OPERATION: 03/08/2019 SURGEON: Neville Yarbrough MD OPERATION PERFORMED: Left reverse total shoulder arthroplasty with right shoulder corticosteroid injection. PREOPERATIVE DIAGNOSIS: Bilateral shoulder rotator cuff tear arthropathy. POSTOPERATIVE DIAGNOSIS: Bilateral shoulder rotator cuff tear arthropathy. ANESTHESIA: General endotracheal intubation with regional interscalene block. ANESTHESIA PROVIDER: Sarahi Grajeda. ASSISTANTS: Rebecca Freeman PA-C, and Eleanor Hyman LPN. ESTIMATED BLOOD LOSS: 300 mL. COMPLICATIONS: None. CONDITION: Stable. IMPLANTS: 1. Alec size 11 humeral stem 135 degrees with a +4 liner. 2. [place] size 28 mm concentric baseplate. 3. [place] size 32 +6 mm glenosphere. DESCRIPTION OF PROCEDURE: Patient was identified in the preop holding area. Proper site was marked and identified by surgeon. The patient was taken back to the operating theater, where after adequate anesthesia, the patient's left upper extremity was sterilely prepped and draped in the usual sterile fashion. OR time-out was performed. The patient received 2 g IV Ancef. A standard deltopectoral incision was made. This was taken down to the cephalic vein. The cephalic vein was identified and was retracted laterally with the deltoid. The coracoid tendon was identified and an incision on the clavipectoral fascia was done. The conjoined tendon was then retracted medially with an [place]. The anterior humeral circumflex vessels were identified and were cauterized. Biceps tendon was identified and tenodesis was done just above the pectoralis. Biceps tendon above this was then resected and then was taken all the way back with a curved Bruno scissors back to the level of the glenoid and was resected. Takedown of the subscapularis tendon was done and the humeral head was dislocated. Neck cut was then completed and found to be adequate. Attention was turned to the glenoid. Anterior and posterior retractors were placed. Circumferential removal of the labrum as well as capsule was done at this time. A guidepin was placed in a center-center position with just some slight amount of 10-degree inferior tilt. The concentric reamer was then utilized. Any bony osteophytes were rongeured off. At this time, the glenoid baseplate was then placed and the central compression screw was placed and found to have adequate compression and inferior and superior locking screw were then placed and 32 +6 mm glenosphere was impacted into place and found to be in proper is position. C-arm fluoroscopy was then utilized and it was found to be in proper position. At this time, attention was turned to the humerus. Starter awl was placed down the canal starting with an 8 broach, I was able to broach up to an 11, which was found to be rotationally and vertically stable and it was in 30 degrees of retroversion. Trial implants were then placed with a +4, was found to have adequate tension of the conjoined tendon as well as deltoid with no over tensioning and was stable throughout range of motion with no signs of instability. C-arm fluoroscopy showed it to be in adequate position. At this time, the size 11 stem with 135 degrees and +4 liner were constructed on the back table, and they were impacted and placed into the bone in a monoblock. The shoulder was then relocated. C-arm fluoroscopy again showed it to be in proper positioning. 1 L dilute Betadine solution was irrigated through the shoulder along with 3 L of pulse lavage irrigation with Ancef. Topical tranexamic acid and vancomycin powder were applied. A #2 barbed suture was used for closure of the subcutaneous tissue, and Prineo was used for subcuticular closure. The patient tolerated the procedure well. After this was completed, under sterile technique, 2 mL of 40 mg Kenalog and 4 mL of 0.25% Marcaine were injected into the right shoulder. Patient tolerated the procedures well and was sent to PACU in stable condition. MARCOS /[id number]
== END 2019-03-09 14:20 | disposition home or self-care (01) | DRG 483 ==
LOC: JD.MS 10:13 → UNDOADMIN 10:13 → JD.MS 16:04
PROVIDERS: ADMIT Orthopaedic Surgery; ATTEND Orthopaedic Surgery
PROC: 0RRK00Z Replacement of Left Shoulder Joint with Reverse Ball and Socket Synthetic Substitute, Open Approach (ICD-10-PCS; principal; 2019-03-08)
DX: M19.012 Primary osteoarthritis, left shoulder (principal); Z68.41 Body mass index [BMI] 40.0-44.9, adult; M19.011 Primary osteoarthritis, right shoulder; F32.9 Major depressive disorder, single episode, unspecified; E78.5 Hyperlipidemia, unspecified; I77.819 Aortic ectasia, unspecified site; I35.1 Nonrheumatic aortic (valve) insufficiency; I10 Essential (primary) hypertension; K21.9 Gastro-esophageal reflux disease without esophagitis; J45.909 Unspecified asthma, uncomplicated; G89.29 Other chronic pain; G47.33 Obstructive sleep apnea (adult) (pediatric); H40.9 Unspecified glaucoma; M54.9 Dorsalgia, unspecified; H54.7 Unspecified visual loss; E78.00 Pure hypercholesterolemia, unspecified; Z99.81 Dependence on supplemental oxygen; F41.9 Anxiety disorder, unspecified; E66.9 Obesity, unspecified; Z79.82 Long term (current) use of aspirin; Z79.899 Other long term (current) drug therapy; Z85.3 Personal history of malignant neoplasm of breast; Z98.890 Other specified postprocedural states; Z88.2 Allergy status to sulfonamides; Z87.891 Personal history of nicotine dependence; Z86.73 Personal history of transient ischemic attack (TIA), and cerebral infarction without residual deficits; Z90.89 Acquired absence of other organs; Z90.710 Acquired absence of both cervix and uterus; Z96.642 Presence of left artificial hip joint
CPT/HCPCS: 01638; 36415; 64415; 73020-26-LT; 73020-LT; 76000; 76000-26; 80053; 85027; 85730; 87641; 94640; 94760; 97110-GP; 97161-GP; 97165-GO; 97530-GP; 97535-GO; 99222; 99232; A9270-GY; C1713; C1776; J0690; J1885; J2001; J2250; J2370; J2405; J2704; J2710; J2795; J3010; J3301; J3370; J3490; J7050; J7120

== ENCOUNTER 2020-02-01 17:35 | Emergency (ER) | payer MEDICARE, OTHER ==
[2020-02-01 17:48] VITALS: BP 155/83; PULSE 83
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
== END 2020-02-01 20:02 | disposition home or self-care (01) ==
LOC: JD.ED 17:35
DX: H53.142 Visual discomfort, left eye (principal); H57.12 Ocular pain, left eye; I10 Essential (primary) hypertension; E78.00 Pure hypercholesterolemia, unspecified; J45.909 Unspecified asthma, uncomplicated; F41.9 Anxiety disorder, unspecified; F32.9 Major depressive disorder, single episode, unspecified; E66.9 Obesity, unspecified; Z88.2 Allergy status to sulfonamides; Z79.02 Long term (current) use of antithrombotics/antiplatelets; Z79.899 Other long term (current) drug therapy; Z90.49 Acquired absence of other specified parts of digestive tract; Z90.710 Acquired absence of both cervix and uterus; Z87.891 Personal history of nicotine dependence; Z68.41 Body mass index [BMI] 40.0-44.9, adult
CPT/HCPCS: 99283

== ENCOUNTER 2020-08-19 15:39 | Emergency (ER) | payer MEDICARE, OTHER ==
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
[2020-08-19] MEDS ORDERED: cefTRIAXone 2 GM, Lidocaine 1% 4.2 ML IM ONE ×4 (16:53→17:00)
[2020-08-19] MEDS: Lidocaine 1% 10 ML MDV ONE (17:24)
[2020-08-19 17:30] VITALS: BP 129/62; PULSE 70
[2020-08-19] MEDS ORDERED: cefTRIAXone 2 GM Vial IM ONE (17:30)
[2020-08-23] MEDS: Lidocaine 1% 10 ML MDV ONE (14:06)
== END 2020-08-19 17:25 | disposition home or self-care (01) ==
LOC: JD.ED 15:39
DX: N30.01 Acute cystitis with hematuria (principal); E78.00 Pure hypercholesterolemia, unspecified; I10 Essential (primary) hypertension; K21.9 Gastro-esophageal reflux disease without esophagitis; J45.909 Unspecified asthma, uncomplicated; E66.9 Obesity, unspecified; Z79.899 Other long term (current) drug therapy; Z79.02 Long term (current) use of antithrombotics/antiplatelets; Z68.41 Body mass index [BMI] 40.0-44.9, adult
CPT/HCPCS: 81001; 87086; 87186; 96372; 99283; J0696

== ENCOUNTER 2021-03-07 08:48 | Day surgery (SDC) | payer MEDICARE, OTHER ==
[~2021-03-07 08:48] MED LIST changes: -Acetaminophen 325 MG Tab PO SCH; -Bisacodyl 5 MG Tab PO PRN; -Cyclobenzaprine 10 MG Tab PO PRN; +Lactated Ringers 1,000 ML IV SCH; -Magnesium Hydroxide 400 MG/5 ML Susp 30 ML Cup PO PRN; -Morphine 2 MG/ML Syringe IVPUSH PRN; -Naloxone 0.4 MG/ML SDV IVPUSH PRN; -Ondansetron 4 MG/2 ML SDV IVPUSH PRN; -Pregabalin 25 MG Cap PO SCH; -Ropivacaine 0.5% 5 MG/ML 30 ML SDV ONE; -Sennosides 8.6 MG Tab PO PRN; -ceFAZolin 2 GM in Premix Bag 1 BAG IV SCH; -oxyCODONE ER 10 MG TAB.ER PO SCH
[2021-03-07] MEDS ORDERED: Lidocaine 1% 4 ML ONE (08:57)
[2021-03-07] MEDS ORDERED: Propofol 200 MG/20 ML SDV ONE ×3 (08:57→12:17)
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
[2021-03-07] MEDS ORDERED: Ketamine 500 mg/10 ML MDV ONE (11:41)
--- NOTE | 2021-03-07 12:54 | PCM.OPNOTE ---
- General Post-Op/Procedure Note Date of Surgery/Procedure: 03/07/21 Operative Procedure(s): EGD and colonoscopy Findings: 1. Gastritis 2. Duodenitis 3. Hiatal hernia 4. Colon polyps 5. Colitis Pre Op Diagnosis: Abdominal pain, dysphagia, bloating, history of colon polyps Post-Op Diagnosis: same Anesthesia Technique: GABBY Primary Surgeon: Yenifer Perdomo Anesthesia Provider: Joanne Miller Pathology: 1. Duodenal biopsies 2. Antrum biopsies 3. Cecum and ascending colon biopsies 4. Transverse colon biopsies 5. Descending and sigmoid colon biopsies 6. Rectal biopsies 7. Transverse colon polyps x4 8. Descending colon polyp Fluid Replacement, Intraop: 1,500 Output, Urine Amount: 0 EBL in mLs: 0 Complications: none apparent Condition: Good
--- NOTE | 2021-03-07 12:57 | PCM.PRNOTE ---
- Free Text/Narrative Note: Operative Report Date of Procedure: March 07, 2021 Pre Op Diagnosis: Abdominal pain, dysphagia, bloating, history of colon polyps Post-Op Diagnosis: Same Operative Procedures: 1. EGD with biopsy 2. Colonoscopy to the cecum with biopsies and polypectomy Primary Surgeon: Yenifer Perdomo MD Anesthesia Provider: Joanne Miller CRNA Anesthesia Technique: MAC IV Fluid Replacement, Intraop: 1500cc crystalloid Output, Urine Amount: 0cc EBL in mLs: []cc Findings: 1. Gastritis 2. Duodenitis 3. Hiatal hernia 4. Colon polyps 5. Colitis Specimens: 1. Duodenal biopsies 2. Antrum biopsies 3. Cecum and ascending colon biopsies 4. Transverse colon biopsies 5. Descending and sigmoid colon biopsies 6. Rectal biopsies 7. Transverse colon polyps x4 8. Descending colon polyp Drain/Tubes: None Indication: The patient is a 75-year-old lady who presented to the clinic with history of colon polyps. The patient reported symptoms of abdominal pain and significant bloating. The patient was consented for a diagnostic EGD and colonoscopy. Risks of bleeding, and perforation were discussed, and the patient agreed to the risks and wished to proceed. Description of the procedure: The patient was taken back to the endoscopy suite, and placed in the left lateral decubitus position. A bite block was placed. The patient was sedated with MAC anesthesia. The Olympus video endoscope was inserted into the oropharynx and guided under direct vision into the esophagus, stomach, and duodenum. The duodenal bulb and second portion of the duodenum remarkable for evidence of inflammation. Biopsies were taken with a cold biopsy forceps. The gastric antrum was inspected and cold biopsy forceps were used to take tissue samples for H. pylori. There was erythema in this area consistent with gastritis the scope was withdrawn to the stomach and retroflexed. There was no increased fluid, food or secretions in the upper gastrointestinal tract. No erosions or ulcers were noted. The scope was withdrawn to the esophagus. A this point we noted a small hiatal hernia. The Z-line was regular and there were no Barretts esophagus changes noted. The endoscope was then withdrawn. Next, anorectal examination was performed. No lesions, masses or hemorrhoids were noted externally or on palpation. The scope was placed into the rectum and advanced to cecum. Upon reaching the cecum, and the patients cecum was entered. There was moderate tortuosity of the colon, and external abdominal pressure was required to advance to the cecum as well as increased sedation. The ileocecal valve was well visualized and the appendiceal orifice identified. At this point, the scope was slowly withdrawn, paying attention to the mucosa. The patient had good bowel prep. Patchy erythema was noted in the right colon and transverse colon. Random colon biopsies were taken in the cecum, ascending colon, transverse colon, descending colon and sigmoid using a cold biopsy forceps. Patient no findings of petechiae were noted in the rectum, and biopsies were taken with a cold biopsy forceps. A 12 mm sessile polyp was found in the proximal transverse colon. This was removed piecemeal using a jumbo cold biopsy forceps. The area was marked with a tattoo mora. 3 additional transverse colon polyps were noted ranging between 8 to 4 mm. These were removed with a jumbo cold biopsy forceps. in the rectum, scope was retroflexed and some hemorrhoidal tissue was noted. The scope was placed back in the lumen and excess air was aspirated. The scope was removed. The patient tolerated the procedure very well. Complications: None apparent Condition: The patient was transported to PACU in stable condition. Yenifer Perdomo MD General Surgery
--- NOTE | 2021-03-07 13:03 | PCM48HPAN ---
Post Anesthesia Note - EVALUATION WITHIN 48HRS OF ANESTHETIC Vital Signs in Normal Range: Yes Patient Participated in Evaluation: Yes Respiratory Function Stable: Yes Airway Patent: Yes Cardiovascular Function Stable: Yes Hydration Status Stable: Yes Pain Control Satisfactory: Yes Nausea and Vomiting Control Satisfactory: Yes Mental Status Recovered: Yes
[2021-03-07] MEDS ORDERED: Ondansetron 4 MG/2 ML SDV IVPUSH SCH (13:50)
[2021-03-07 15:53] VITALS: BP 143/61; PULSE 74
== END 2021-03-07 14:32 | disposition home or self-care (01) ==
LOC: JD.SDS 08:48
PROVIDERS: ATTEND Surgery
DX: D12.0 Benign neoplasm of cecum (principal); D12.2 Benign neoplasm of ascending colon; K62.89 Other specified diseases of anus and rectum; K44.9 Diaphragmatic hernia without obstruction or gangrene; K52.9 Noninfective gastroenteritis and colitis, unspecified; K29.90 Gastroduodenitis, unspecified, without bleeding; K31.89 Other diseases of stomach and duodenum; K64.9 Unspecified hemorrhoids; Z86.010 Personal history of colon polyps; E66.9 Obesity, unspecified; G47.33 Obstructive sleep apnea (adult) (pediatric); Z98.890 Other specified postprocedural states; Z87.891 Personal history of nicotine dependence; Z88.2 Allergy status to sulfonamides; Z68.41 Body mass index [BMI] 40.0-44.9, adult
CPT/HCPCS: 43239; 45380; 45381; J2405; J2704; J7120; 00813; 88305